=== PATIENT | female | born 1975 | race Caucasian/White ===

== ENCOUNTER 2020-07-11 14:26 | Outpatient (REF) | payer MEDICAID, SELFPAY | END 2020-07-11 14:27 | disposition home or self-care (01) | LOC: HO.LAB 14:26 | PROVIDERS: Visit Provider Internal Medicine | DX: Z20.828 Contact with and (suspected) exposure to other viral communicable diseases (principal) | CPT/HCPCS: C9803; U0003 ==

== ENCOUNTER 2021-02-22 20:34 | Emergency (ER) | payer MEDICAID, SELFPAY ==
[2021-02-22 20:49] VITALS: BP 138/84; PULSE 106; RESP 20; TEMP 37; O2SAT 100; BMI 30.2
--- NOTE | 2021-02-22 21:51 | ED.FEMALEGU ---
HPI - Female Genitourinary General Chief complaint: Urogenital-Female Stated complaint: asthma, blood in urine Time Seen by Provider: 02/22/21 21:28 Source: patient Mode of arrival: ambulatory Limitations: no limitations History of Present Illness HPI Narrative: patient complaining of difficulty in urination noticed some blood in the urine has dysuria frequency no fever no chills also complaining of asthma for last 1 week using inhaler only once or twice a day no fever no chills no nausea no vomiting Related Data Previous Rx's Medication Instructions Recorded prednisone 40 mg PO DAILY #10 tab 02/22/21 Allergies Allergy/AdvReac Type Severity Reaction Status Date / Time acetaminophen [From PERCOCET] Allergy Unknown RASH/ITCHIN Unverified 05/16/20 19:10 ESS oxycodone [From PERCOCET] Allergy Unknown RASH/ITCHIN Unverified 05/16/20 19:10 ESS shrimp [SHRIMP] Allergy Unknown SWELLING Unverified 05/16/20 19:10 Percocet Allergy Unknown Uncoded 10/11/19 00:00 Review of Systems Review of Systems: Yes all other systems are reviewed and are negative [facility] Past Medical History Medical History Asthma Social History Social History Advance Directives: No Advance Directives Information Provided: Yes Patient : No Physical Exam Vital Signs: Vital Signs: Last Vital Signs Temp 98.6 F 02/22/21 20:49 Pulse 106 H 02/22/21 20:49 Resp 20 02/22/21 20:49 BP 138/84 02/22/21 20:49 Pulse Ox 100 02/22/21 20:49 Body Mass Index 30.2 Appearance: Alert. Oriented X3. No acute distress. Eyes: PERRLA, No Nystagmus ENT: Pharynx normal. Oral Mucosa moist Neck: Normal inspection. Neck supple. CVS: Normal heart rate and rhythm. Pulses normal. Respiratory: No respiratory distress. Equal air entry bilateral, no wheezing/rales/rhonchi frequent cough, prolonged expiration Abdomen: Soft and nontender. Bowel sounds are present, no mass palpable, no CVA tenderness Skin: Skin warm and dry. Normal skin color. Normal skin turgor. Extremities: No lower extremity edema. No calf tenderness Neuro: Oriented X 3. No motor deficit. MDM - Female Genitourinary Lab Data Attestation: I reviewed the patient's lab results. Labs: Lab Results 02/22/21 Range/Units 21:48 Urine Color YELLOW Urine Appearance CLEAR Urine pH 7.0 (5.0-8.0) Ur Specific [place] 1.015 (1.005-1.025) Urine Protein NEG (NEG-TRACE) MG/DL Urine Glucose (UA) NEG (NEG) MG/DL Urine Ketones NEG (NEG) MG/DL Urine Blood 3+ H (NEG) Urine Nitrite NEG (NEG) Ur Leukocyte Esterase NEG (NEG) Urine RBC 15-29 H (0) /HPF Urine WBC 0 (0-4) /HPF Ur Squamous Epith Cells TRACE /LPF Urine Bacteria NONE /LPF Discharge Plan Discharge Clinical Impression: Hematuria, Asthma Patient Disposition: Home, Self-Care Instructions: Asthma (ED), Hematuria (ED) Additional Instructions: use inhaler every 4-6 hours as advised. drink plenty of fluids. Take prednisone as prescribed and follow-up with your PCP and urologist use el inhalador cada 4-6 horas adiel se recomienda. beber mucho l?quido. [place] prednisona seg?n lo prescrito y chika un seguimiento con gonsales PCP y ur?logo Prescriptions: New prednisone 20 mg tablet 40 mg PO DAILY Qty: 10 RF: 0 Referrals: Raul Mckeon MD [Physician] - 1 week Interventions: ED Discharge Assessment Last Done: 02/22/21 23:23 Discharge Date/Time: 02/22/21 23:25 Print Language: Syrian
[2021-02-22 22:01] LABS: Glucose Urine UA NEG (NEG); Leukocyte Esterase Urine NEG (NEG); Nitrite Urine NEG (NEG); Specific Gravity - Urine 1.015 (1.005-1.025); Urine Blood 3+ (NEG); Urine Ketones NEG (NEG); Urine Protein NEG (NEG-TRACE)
[2021-02-22 22:02] LABS: Appearance Urine CLEAR; Color Urine YELLOW
--- NOTE | 2021-02-22 22:13 | PC.NURSE ---
URINE SPECIMEN COLLECTED AND SENT FOR ANALYSIS. AWAITING RESULTS
[2021-02-22 22:21] LABS: Squamous Epithelial Cell Urine TRACE /LPF; WBC Urine 0 /HPF (0-4)
[2021-02-22] MEDS: Albuterol Sulfate 90 MCG 8 GM INHALER 2 PUFF INHALE (23:19)
[2021-02-22] MEDS: predniSONE 20 MG TABLET 40 MG PO (23:19)
== END 2021-02-22 23:25 | disposition home or self-care (01) ==
PROVIDERS: Emergency Provider Internal Medicine; PCP Internal Medicine
DX: R31.9 Hematuria, unspecified (principal); J45.909 Unspecified asthma, uncomplicated
CPT/HCPCS: 81001; 81003; 99283; 99284

== ENCOUNTER 2021-02-26 17:57 | Emergency (ER) | payer MEDICAID, SELFPAY ==
[2021-02-26 18:39] VITALS: BP 113/65; PULSE 98; RESP 16; TEMP 36.6; O2SAT 98; BMI 29.6
[2021-02-26 18:55] LABS: Glucose Urine UA >=1000 MG/DL (NEG); Leukocyte Esterase Urine NEG (NEG); Nitrite Urine POS (NEG); PH 5.5 (5.0-8.0); Specific Gravity - Urine >= 1.030 (1.005-1.025); UACC Culture Trigger YES; Urine Blood 3+ (NEG); Urine Ketones 5 MG/DL (NEG); Urine Protein 2+ MG/DL (NEG-TRACE)
[2021-02-26 18:58] LABS: Appearance Urine HAZY; Color Urine AMBER
[2021-02-26 19:09] LABS: Bacteria Urine 2+ /LPF; Mucus Urine TRACE /LPF; RBC Urine TNTC /HPF (0); Renal Epithelial Cells Urine TRACE /LPF; Squamous Epithelial Cell Urine TRACE /LPF; UACC CULT YES
[2021-02-26 22:49] VITALS: BP 120/71; PULSE 82; RESP 16; TEMP 37; O2SAT 99
[2021-02-26 23:02] LABS: MANUAL DIFF FLAG NO
[2021-02-26 23:03] LABS: Basophils Percent Auto 0.1 % (0-2); Hematocrit 41.4 % (37-47); Hemoglobin 13.2 g/dl (12.0-16.0); Imm Gran Abs Auto 0.04 X10*3/uL (0.00-0.03); Imm Gran Pct Auto 0.4 % (0.0-0.4); Lymphocytes Absolute Auto 1.6 X10*3/uL (1.2-4.9); Lymphocytes Percent Auto 16.9 % (20-40); Mean Corpuscular HGB Conc 31.9 g/dl (31.0-35.0); Mean Corpuscular Hemoglobin 29.3 pg (27.0-33.0); Mean Platelet Volume 9.9 fL (9.4-12.3); Monocytes Absolute Auto 0.7 X10*3/uL (0.1-1.2); Monocytes Percent Auto 7.5 % (2-11); Neutrophils Absolute Auto 7.2 X10*3/uL (2.0-8.3); Neutrophils Percent Auto 75.1 % (45-73); Platelet Count 282 X10*3/uL (160-400); Red Cell Distribution Width 11.9 % (11.0-16.0); White Blood Count 9.5 X10*3/uL (4.8-10.8)
--- NOTE | 2021-02-26 23:09 | ED_ITS ---
HPI - Female Genitourinary General Chief complaint: Urogenital-Female Stated complaint: Blood in urine Time Seen by Provider: 02/26/21 23:04 Source: patient Mode of arrival: ambulatory Limitations: no limitations History of Present Illness HPI Narrative: patient comes to the emergency room complaining of dysuria and hematuria. Patient states that 3 days ago she was started on Bactrim for UTI. Patient states that her symptoms have not resolved. The patient denies fever chills, patient complaining of mild bilateral back pain And mild bilateral flank tenderness. Related Data Previous Rx's Medication Instructions Recorded prednisone 40 mg PO DAILY #10 tab 02/22/21 Allergies Allergy/AdvReac Type Severity Reaction Status Date / Time acetaminophen [From PERCOCET] Allergy Unknown RASH/ITCHIN Unverified 05/16/20 19:10 ESS oxycodone [From PERCOCET] Allergy Unknown RASH/ITCHIN Unverified 05/16/20 19:10 ESS shrimp [SHRIMP] Allergy Unknown SWELLING Unverified 05/16/20 19:10 Percocet Allergy Unknown Uncoded 10/11/19 00:00 Review of Systems Review of Systems: Constitutional : No Weight loss, No Fever, No Chills, No Night Sweats, No Fatigue, No Malaise ENT/Mouth : No Hearing loss, No Ear Pain, No Nasal Congestion, No Sinus Pain, No Hoarseness, No sore throat, No Rhinorrhea, No Swallowing Difficulty Eyes: No Eye Pain, No Swelling, No Redness, No Foreign Body, No Discharge, No Vision Changes Cardiovascular : No Chest Pain, No SOB, No Dyspnea on Exertion, No Orthopnea, No Edema, No Palpitations Respiratory : No Cough, No Sputum, No Wheezing, No Smoke Exposure, No Dyspnea Gastrointestinal : No Nausea, No Vomiting, No Diarrhea, No Constipation, No abdominal Pain, No Hematochezia, No Melena Genitourinary : no irregular bleeding, complaining of dysuria and hematuria, mild bilateral flank pain, No Urinary Incontinence, No Urgency, No Flank Pain, No Urinary Flow Changes, No Hesitancy Musculoskeletal : No joint pain, No Myalgias, No Joint Swelling Skin : No Skin Lesions, No rash Neuro : No Weakness, No Numbness, No Paresthesias, No Loss of Consciousness, No Dizziness, No Headache Psych : No Anxiety/Panic, No Depression, No SI/HI/AH/VH, No Social Issues, Heme/Lymph: No Bruising, No Bleeding,No Lymphadenopathy Endocrine : No Polyuria, No Polydipsia, No Temperature Intolerance [facility] Past Medical History Medical History Asthma Social History Social History Advance Directives: No Advance Directives Information Provided: Yes Physical Exam Vital Signs: Vital Signs: Last Vital Signs Temp 98.6 F 02/26/21 22:49 Pulse 82 02/26/21 22:49 Resp 16 02/26/21 22:49 BP 120/71 02/26/21 22:49 Pulse Ox 99 02/26/21 22:49 Body Mass Index 29.6 Appearance: Alert. Oriented X3. No acute distress. well-appearing Eyes: Pupils equal, round and reactive to light. ENT: Pharynx normal. Neck: Normal inspection. Neck supple. No lymph nodes noted. No crepitus CVS: Normal heart rate and rhythm. Pulses normal. Normal S1 and S2 Respiratory: No respiratory distress. Breath sounds normal. No Wheezing. No rales Abdomen: Soft and nontender. No rigidity. No distention back: Mild pain in the thoracic and lumbar spine, and the bilateral flanks Skin: Skin warm and dry. Normal skin color. Normal skin turgor. Extremities: No lower extremity edema. No lower extremity edema. No Lacerations. No Rash Neuro: Oriented X 3. No motor deficit. No sensory deficit. Moving all extermities. No slurred speech. Course Course Course Narrative: patient was given the 1st dose of levofloxacin, urine culture and sensitivities have not returned. Sepsis is not suspected at this time. MDM - Female Genitourinary Lab Data Result diagrams: 02/26/21 22:57 02/26/21 22:57 Labs: Lab Results 02/26/21 02/26/21 02/26/21 Range/Units 18:48 22:57 22:57 WBC 9.5 (4.8-10.8) X10*3/uL RBC 4.50 (4.20-5.50) X10*6/uL Hgb 13.2 (12.0-16.0) g/dl Hct 41.4 (37-47) % MCV 92.0 (80-98) fL MCH 29.3 (27.0-33.0) pg MCHC 31.9 (31.0-35.0) g/dl RDW 11.9 (11.0-16.0) % Plt Count 282 (160-400) X10*3/uL MPV 9.9 (9.4-12.3) fL Immature Gran % (Auto) 0.4 (0.0-0.4) % Neut % (Auto) 75.1 H (45-73) % Lymph % (Auto) 16.9 L (20-40) % [place] % (Auto) 7.5 (2-11) % Eos % (Auto) 0.0 (0-4) % Baso % (Auto) 0.1 (0-2) % Lymph # (Auto) 1.6 (1.2-4.9) X10*3/uL [place] # (Auto) 0.7 (0.1-1.2) X10*3/uL Eos # (Auto) 0.0 (0.0-0.4) X10*3/uL Baso # (Auto) 0.0 (0.0-0.2) X10*3/uL Abs Immat Gran (auto) 0.04 H (0.00-0.03) X10*3/uL Absolute Neuts (auto) 7.2 (2.0-8.3) X10*3/uL Absolute Nucleated RBC 0.000 (0.0-0.012) X10*3/uL Nucleated RBC % (auto) 0.0 (0.0-0.2) /100WBC Sodium 139 (135-145) mmol/L Potassium 5.2 H (3.3-5.1) mmol/L Chloride 105 (96-108) mmol/L Carbon Dioxide 27 (22-29) mmol/L Anion Gap 12 (12-20) BUN 12 (9-16) mg/dL Creatinine 0.77 (0.5-1.4) mg/dL Estim Creat Clear Calc 88.4 Estimated GFR > 60 Random Glucose 133 H (60-115) mg/dL Calcium 9.6 (8.4-10.2) mg/dL Urine Color DEANNA Urine Appearance HAZY Urine pH 5.5 (5.0-8.0) Ur Specific [place] >= 1.030 H (1.005-1.025) Urine Protein 2+ H (NEG-TRACE) MG/DL Urine Glucose (UA) >=1000 H (NEG) MG/DL Urine Ketones 5 (NEG) MG/DL Urine Blood 3+ H (NEG) Urine Nitrite POS H (NEG) Ur Leukocyte Esterase NEG (NEG) Urine RBC TNTC H (0) /HPF Urine WBC 5-9 H (0-4) /HPF Ur Squamous Epith Cells TRACE /LPF Ur Renal Epithelial Cell TRACE /LPF Urine Bacteria 2+ /LPF Urine Mucus TRACE /LPF Discharge Plan Discharge Clinical Impression: Urinary tract infection Qualifiers: Hematuria presence: with hematuria Patient Disposition: Home, Self-Care Instructions: Urinary Tract Infection in Women (ED) Prescriptions: No Action prednisone 20 mg tablet 40 mg PO DAILY Qty: 10 RF: 0
[2021-02-26 23:24] LABS: Anion Gap 12 (12-20); Blood Urea Nitrogen 12 mg/dL (9-16); Calcium 9.6 mg/dL (8.4-10.2); Carbon Dioxide 27 mmol/L (22-29); Chloride 105 mmol/L (96-108); Creatinine Clr Calc Pharmacy 88.4; Estimated Glomerular Filt Rate > 60; Glucose Random 133 mg/dL (60-115); Potassium 5.2 mmol/L (3.3-5.1); Sodium 139 mmol/L (135-145)
[2021-02-27] MEDS: levoFLOXacin 500 MG TABLET PO (00:23)
== END 2021-02-27 00:40 | disposition home or self-care (01) ==
PROVIDERS: Emergency Provider Emergency Medicine
DX: N39.0 Urinary tract infection, site not specified (principal)
CPT/HCPCS: 36415; 80048; 81001; 85025; 87086; 99283

== ENCOUNTER 2021-04-09 21:53 | Emergency (ER) | payer MEDICAID, SELFPAY ==
--- NOTE | ~2021-04-09 | XR_ITS ---
EXAMINATION: XR FOOT, RIGHT XR ANKLE, RIGHT CLINICAL INFORMATION: Fall with right foot/toe pain. Ankle pain. COMPARISON: None TECHNIQUE: 3 views of the right foot. 2 additional views of the right ankle. FINDINGS: Right foot: There is no fracture or dislocation. Alignment is maintained. Joint spaces are maintained. The soft tissues appear unremarkable. Right ankle: No fracture or dislocation. The ankle mortise is congruent. No ankle joint effusion. The soft tissues are mildly swollen laterally. XR/XR ankle RT 2V IMPRESSION: Mild lateral swelling at the ankle. No acute osseous abnormality.
--- NOTE | ~2021-04-09 | XR_ITS ---
EXAMINATION: XR FOOT, RIGHT XR ANKLE, RIGHT CLINICAL INFORMATION: Fall with right foot/toe pain. Ankle pain. COMPARISON: None TECHNIQUE: 3 views of the right foot. 2 additional views of the right ankle. FINDINGS: Right foot: There is no fracture or dislocation. Alignment is maintained. Joint spaces are maintained. The soft tissues appear unremarkable. Right ankle: No fracture or dislocation. The ankle mortise is congruent. No ankle joint effusion. The soft tissues are mildly swollen laterally. XR/XR foot RT 2V IMPRESSION: Mild lateral swelling at the ankle. No acute osseous abnormality.
[2021-04-09 22:17] VITALS: BP 114/75; PULSE 88; RESP 18; TEMP 36.4; O2SAT 96; BMI 31.1
--- NOTE | 2021-04-09 23:12 | ED.FALL ---
HPI - Fall General Chief Complaint: Fall Stated Complaint: fall Time Seen by Provider: 04/09/21 22:48 Source: patient Mode of arrival: ambulatory Limitations: no limitations History of Present Illness HPI Narrative: Patient presents to ED for right foot pain. Patient states she hit her foot on the pole in the pool. Patient denies hitting head or loss of consciousness. Related Data Previous Rx's Medication Instructions Recorded prednisone 20 mg tablet 40 mg PO DAILY #10 tab 02/22/21 levofloxacin 500 mg tablet 500 mg PO DAILY #9 tab 02/27/21 naproxen 500 mg tablet 500 mg PO BID PRN #20 tab 04/09/21 Allergies Allergy/AdvReac Type Severity Reaction Status Date / Time acetaminophen [From PERCOCET] Allergy Unknown RASH/ITCHIN Verified 04/09/21 22:21 ESS oxycodone [From PERCOCET] Allergy Unknown RASH/ITCHIN Verified 04/09/21 22:21 ESS shrimp [SHRIMP] Allergy Unknown SWELLING Verified 04/09/21 22:21 Percocet Allergy Unknown Rash Uncoded 04/09/21 22:21 Review of Systems Review of Systems: Yes all other systems are reviewed and are negative Constitutional: Constitutional: Reports as per HPI and Reports no additional constitutional complaints Eyes: Eyes: Reports as per HPI and Reports no additional eye complaints ENT: Reports system reviewed and no additional complaints, except as documented and Reports as per HPI Cardiovascular: Cardiovascular: Reports as per HPI and Reports no additional cardiovascular complaints Respiratory: Respiratory: Reports as per HPI and Reports no additional respiratory complaints Gastrointestinal: Gastrointestinal: Reports as per HPI and Reports no additional gastrointestinal complaints Genitourinary: Genitourinary: Reports no additional female genitourinary complaints and Reports as per HPI Musculoskeletal: Musculoskeletal: Reports no additional musculoskeletal complaints and Reports as per HPI Comments: Right foot pain Neurologic: Reports system reviewed and no additional complaints, except as documented and Reports as per HPI Psychiatric: Psychiatric: Reports no additional psychiatric complaints and Reports as per HPI PMF Past Medical History Medical History Asthma Social History Social History Advance Directives: No Advance Directives Information Provided: No Patient : No Physical Exam Vital Signs: Vital Signs: Last Vital Signs Temp 97.6 F 04/09/21 22:17 Pulse 88 04/09/21 22:17 Resp 18 04/09/21 22:17 BP 114/75 04/09/21 22:17 Pulse Ox 96 04/09/21 22:17 Body Mass Index 31.1 Const: General: cooperative, healthy appearing, comfortable, no acute distress, well developed, alert, awake and Physically active Orientation/consciousness: patient oriented x3 HENMT: Head: Yes normal to inspection, Yes No palpable skull fracture present, Yes normocephalic and Yes atraumatic Eyes: General: appearance normal, both eyes and all related structures Neck: Neck: Yes normal visual inspection, Yes full ROM, Yes no lymphadenopathy, Yes no meningeal signs, Yes trachea midline, Yes supple and No tender Chest: Chest palpation & inspection: normal inspection of the chest and normal palpation of entire chest wall Resp: Effort & Inspection: normal respiratory effort and able to speak in complete sentences Auscultation: clear to auscultation bilaterally Cardio: Jugular venous distension: no JVD Heart sounds: S1 normal heart sound present and S2 normal heart sound present GI: Inspection: Yes normal to inspection and No abdominal wall ecchymosis Palpation (GI): Soft to palpation, not firm, nontender, no guarding and not rigid : General: No CVA tenderness and Yes no CVA tenderness Back/Spine/Pelvis: Back: no CVA tenderness, No CVA tenderness and No back tenderness Skin: General skin exam: no rashes or lesions noted and elasticity normal Neuro: General: patient oriented x3, gait normal, no meningeal signs and CN's II-XI intact bilaterally Cranial nerves: Yes CN's II-XII intact bilaterally Extrem: General: Yes normal to inspection and Yes full ROM Ankle/foot/toe images: 1. Positive for ecchymosis/tenderness on palpation. Negative for obvious deformity. Motor/neuro/vascular exam intact. Negative for erythema Course Course Course Narrative: Patient sent for lower extremity xray. Reevaluation(s) Reevaluation #1: X-rays negative for fracture. Contusion Time: 23:20 MDM - Fall MDM Narrative Medical decision making narrative: Contusion Discharge Plan Discharge Clinical Impression: Contusion Patient Disposition: Home, Self-Care Instructions: Contusion in Adults (ED) Additional Instructions: X-rays came back negative for fracture. Return to the ED immediately for worsening swelling, pain, redness, leg swelling, calf pain, bluish black discoloration of toes , coldness , hotness, fever, chills, chest pain, shortness of breath, or any other concerning symptoms. Please follow up with PCP. Prescriptions: New naproxen 500 mg tablet 500 mg PO BID PRN (Reason: pain) Qty: 20 RF: 0 No Action levofloxacin 500 mg tablet 500 mg PO DAILY Qty: 9 RF: 0 prednisone 20 mg tablet 40 mg PO DAILY Qty: 10 RF: 0 Stand Alone Forms: Work/School Release Print Language: Upper Sorbian
[2021-04-09] MEDS: Ibuprofen 800 MG TABLET PO (23:32)
== END 2021-04-09 23:50 | disposition home or self-care (01) ==
PROVIDERS: Emergency Provider Emergency Medicine
DX: S90.31XA Contusion of right foot, initial encounter (principal); W22.09XA Striking against other stationary object, initial encounter; Y93.11 Activity, swimming; Y92.34 Swimming pool (public) as the place of occurrence of the external cause; Y99.9 Unspecified external cause status
CPT/HCPCS: 73600; 73620; 99283; 99284

== ENCOUNTER 2021-04-23 14:28 | Outpatient (REF) | payer MEDICAID, SELFPAY | END 2021-04-23 14:29 | disposition home or self-care (01) | LOC: HO.LNP 14:28 | DX: N30.91 Cystitis, unspecified with hematuria (principal); R31.29 Other microscopic hematuria | CPT/HCPCS: 87086; 99202 ==

== ENCOUNTER 2021-04-29 13:50 | Outpatient (REF) | payer MEDICAID, SELFPAY ==
--- NOTE | ~2021-04-29 | US_ITS ---
EXAMINATION: US RETROPERITONEAL LIMITED (RENAL ONLY) CLINICAL INFORMATION: Hematuria, unspecified. COMPARISON: Renal ultrasound 03/27/2021. Ultrasound abdomen 08/18/2016. TECHNIQUE: Real-time imaging of the kidneys. FINDINGS: RIGHT KIDNEY: 11.4 x 4.8 x 5.7 cm (SAG x AP x TRV). The kidney is normal in size, contour, and echogenicity. Renal cortical thickness is normal. No calculi or focal parenchymal lesions. No hydronephrosis. LEFT KIDNEY: 11.8 x 5.3 x 6.3 cm (SAG x AP x TRV). The kidney is normal in size, contour, and echogenicity. Renal cortical thickness is normal. There are 2 small hyperechoic densities in the midpole questionable for small stones measuring 3 mm. No focal parenchymal lesions or hydronephrosis. The liver is echogenic. US/US renal BI IMPRESSION: Question small left renal stones.
== END 2021-04-29 13:51 | disposition home or self-care (01) ==
LOC: HO.HMGCX 13:50
PROVIDERS: PCP Internal Medicine
DX: R31.9 Hematuria, unspecified (principal)
CPT/HCPCS: 76775

== ENCOUNTER → 2021-05-28 08:32 | Outpatient (BNVA) | payer MEDICAID, SELFPAY | PROVIDERS: PCP Internal Medicine | DX: N20.2 Calculus of kidney with calculus of ureter (principal); R31.9 Hematuria, unspecified | CPT/HCPCS: 99212 ==

== ENCOUNTER 2021-07-11 10:40 | Outpatient (REF) | payer MEDICAID, SELFPAY ==
[2021-07-12 12:04] LABS: H Pylori Breath Test Negative (Negative)
== END 2021-07-11 10:41 | disposition home or self-care (01) ==
LOC: HO.LNP 10:40
PROVIDERS: PCP Internal Medicine; Referring Provider Internal Medicine; Visit Provider Internal Medicine Gastroenterology
DX: K29.70 Gastritis, unspecified, without bleeding (principal)
CPT/HCPCS: 83013; 99212

== ENCOUNTER 2021-09-04 10:24 | Outpatient (REF) | payer MEDICAID, SELFPAY ==
[2021-09-04 12:33] LABS: Binax Internal Control QC Valid; Binax Now Covid-19 Ag Positive (Negative)
== END 2021-09-04 10:25 | disposition home or self-care (01) ==
LOC: HO.HMGCLDS 10:24
PROVIDERS: Visit Provider Internal Medicine
DX: Z20.822 Contact with and (suspected) exposure to COVID-19 (principal)
CPT/HCPCS: 36415; C9803

== ENCOUNTER → 2021-11-07 10:34 | Outpatient (BNVA) | payer MEDICAID, SELFPAY | PROVIDERS: PCP Internal Medicine; Referring Provider Internal Medicine; Visit Provider Internal Medicine Gastroenterology ==

== ENCOUNTER 2021-12-10 08:21 | Emergency (ER) | payer MEDICAID, SELFPAY ==
--- NOTE | ~2021-12-10 | US_ITS ---
EXAMINATION: US PELVIS CLINICAL INFORMATION: Ovarian cyst with pain. Rule out torsion. COMPARISON: Previous CT scan of the abdomen and pelvis from earlier the same day TECHNIQUE: Ultrasound of the pelvis is performed using both transabdominal and transvaginal transducers along with Doppler. Transvaginal imaging is performed due to inadequate visualization transabdominally. Grayscale color and Doppler imaging of the ovarian vessels including waveform spectral analysis. FINDINGS: The uterus has been removed. The right ovary is normal-appearing and measures 3 x 2.3 x 2.9 cm. Flow is documented to the right ovary. The left ovary is enlarged and measures 6 x 4.1 x 4.9 cm. There is a 3.9 x 3.7 x 4.1 cm simple cyst and a 2.4 x 1.2 x 1.2 cm simple cyst in the left ovary. Normal flow is documented to the left ovary. There is no evidence of torsion. There is no fluid in the pelvis. US/US pelvic complete IMPRESSION: Enlarged ovaries and 2 left ovarian cysts. Normal right ovary. No evidence of torsion.
--- NOTE | ~2021-12-10 | US_ITS ---
EXAMINATION: US PELVIS CLINICAL INFORMATION: Ovarian cyst with pain. Rule out torsion. COMPARISON: Previous CT scan of the abdomen and pelvis from earlier the same day TECHNIQUE: Ultrasound of the pelvis is performed using both transabdominal and transvaginal transducers along with Doppler. Transvaginal imaging is performed due to inadequate visualization transabdominally. Grayscale color and Doppler imaging of the ovarian vessels including waveform spectral analysis. FINDINGS: The uterus has been removed. The right ovary is normal-appearing and measures 3 x 2.3 x 2.9 cm. Flow is documented to the right ovary. The left ovary is enlarged and measures 6 x 4.1 x 4.9 cm. There is a 3.9 x 3.7 x 4.1 cm simple cyst and a 2.4 x 1.2 x 1.2 cm simple cyst in the left ovary. Normal flow is documented to the left ovary. There is no evidence of torsion. There is no fluid in the pelvis. US/US pelvic ovarian doppler IMPRESSION: Enlarged ovaries and 2 left ovarian cysts. Normal right ovary. No evidence of torsion.
--- NOTE | ~2021-12-10 | CT_ITS ---
EXAMINATION: CT ABDOMEN AND PELVIS WITHOUT CONTRAST CLINICAL INFORMATION: Bilateral flank pain. COMPARISON: None TECHNIQUE: Multidetector volumetric imaging was performed from the superior aspect of the liver through the pubic symphysis. Sagittal and coronal reformatted images were obtained on the technologist's workstation. This CT examination was performed using dose optimization techniques as appropriate, variously including the following: *Automated exposure control *Adjustment of mA and/or kV according to patient size (this includes techniques or standardized protocols for targeted exams where dose is matched to indication/reason for exam; i.e. extremities or head) *Use of iterative reconstruction technique DLP: 649 mGy-cm FINDINGS: LUNG BASES: The visualized lung bases are unremarkable. LIVER, GALLBLADDER, AND BILIARY TREE: The liver is normal in size, shape, and hypo-attenuation. No focal hepatic lesion or biliary ductal dilatation is present. The gallbladder is unremarkable with no evidence of radiopaque gallstones, gallbladder wall thickening, or obvious pericholecystic inflammatory changes. PANCREAS: Unremarkable. SPLEEN: Unremarkable. ADRENAL GLANDS: Unremarkable. KIDNEYS AND URETERS: The kidneys are normal in size, shape, and attenuation. No hydronephrosis, hydroureter, or calculi seen. No perinephric stranding. BLADDER: There is indentation of left bladder wall from ovarian cyst. The bladder is incompletely distended. GASTROINTESTINAL TRACT: Scattered stool and gas is seen throughout colon without distention. The small bowel loops are normal caliber. The stomach is nondistended. Appendix is normal caliber. No inflammatory process seen in the abdomen. ABDOMINAL WALL: No significant hernia is appreciated. LYMPH NODES: Normal. VASCULAR: Unremarkable. PELVIC VISCERA: There is a 4.1 x 3.6 cm x 5.2 cyst adjacent to the left ovary likely paraovarian or an exophytic left ovarian cyst. No solid mass seen. The uterus appears to be surgically there is minimal free fluid in the cul-de-sac. Removed OSSEOUS STRUCTURES: No lytic or sclerotic process seen. CT/CT abdomen pelvis wo con IMPRESSION: No acute intra-abdominal process seen. Left paraovarian cyst or an exophytic cyst. Small amount free fluid in the pelvis. The uterus is likely surgically removed. Mild constipation. Mild hepatic steatosis without focal lesion. Fleischner guidelines were followed.
[2021-12-10 08:30] VITALS: BP 119/79; PULSE 98; RESP 16; TEMP 35.9; O2SAT 98; BMI 32.0
[2021-12-10 08:58] LABS: MANUAL DIFF FLAG NO
[2021-12-10 09:00] LABS: Appearance Urine CLEAR; Color Urine YELLOW; Glucose Urine UA NEG (NEG); Leukocyte Esterase Urine NEG (NEG); Nitrite Urine NEG (NEG); PH 5.5 (5.0-8.0); Specific Gravity - Urine >= 1.030 (1.005-1.025); Urine Blood NEG (NEG); Urine Ketones NEG (NEG); Urine Protein NEG (NEG-TRACE)
[2021-12-10 09:00] LABS: Basophils Absolute Auto 0.1 X10*3/uL (0.0-0.2); Basophils Percent Auto 0.9 % (0-2); Eosinophils Absolute Auto 0.2 X10*3/uL (0.0-0.4); Eosinophils Percent Auto 2.6 % (0-4); Hematocrit 39.8 % (37.0-47.0); Hemoglobin 12.1 g/dl (12.0-16.0); Lymphocytes Absolute Auto 1.9 X10*3/uL (1.2-4.9); Lymphocytes Percent Auto 33.1 % (20-40); Mean Corpuscular HGB Conc 30.4 g/dl (31.0-35.0); Mean Corpuscular Hemoglobin 26.5 pg (27.0-33.0); Mean Corpuscular Volume 87.3 fL (80.0-98.0); Mean Platelet Volume 9.9 fL (9.4-12.3); Monocytes Absolute Auto 0.5 X10*3/uL (0.1-1.2); Monocytes Percent Auto 8.8 % (2-11); Neutrophils Absolute Auto 3.1 x10*3/uL (2.0-8.3); Neutrophils Percent Auto 54.6 % (45-73); Platelet Count 276 X10*3/uL (160-400); Red Blood Count 4.56 X10*6/uL (4.20-5.50); Red Cell Distribution Width 12.1 % (11.0-16.0); White Blood Count 5.7 X10*3/uL (4.8-10.8)
[2021-12-10 09:14] LABS: Alanine Aminotransferase 65 U/L (0-31); Albumin Level 3.9 g/dL (3.5-5.0); Alkaline Phosphatase 58 U/L (39-117); Anion Gap 10 (12-20); Aspartate Amino Transferase 47 U/L (5-31); Bilirubin Total 0.4 mg/dL (0.0-1.0); Blood Urea Nitrogen 10 mg/dL (9-16); Calcium 9.2 mg/dL (8.4-10.2); Carbon Dioxide 26 mmol/L (22-29); Chloride 107 mmol/L (96-108); Creatinine Clr Calc Pharmacy 102.5; Estimated Glomerular Filt Rate > 60; Glucose Random 106 mg/dL (60-115); Potassium 4.6 mmol/L (3.3-5.1); Sodium 138 mmol/L (135-145); Total Protein 6.7 g/dL (6.5-8.0)
--- NOTE | 2021-12-10 09:49 | ED_ITS ---
HPI - General Adult General Chief complaint: General Medical Stated complaint: Lower abd pain/back pain Time Seen by Provider: 12/10/21 09:49 Source: patient Mode of arrival: ambulatory Limitations: no limitations History of Present Illness HPI narrative: 45 y/o female with history of kidney stones, hx hysterectomy, presenting to the ER with bilateral flank ( kidney ) pain that radiates to her lower abdomen to he r ovaries that started yesterday. She also reports the left is worse than the right. She denies any urinary symptoms, N/V/D. Reports constipation and straining to have a BM. She any history of back pain or any injury. Patient also reports left-sided facial pain and headache for the last 1 week. She denies any dental pain or trauma. No ear pain or hearing loss. The headache is dull and mild, comes and goes. No dizziness, weakness, tingling. MD complaint: left flank to LLQ Pain Onset (ago): day(s) (1) Location: back, abdomen and pelvis Radiation: abdomen Severity: moderate Severity scale (1-10): 7 Quality: stabbing and aching Pain Consistency: constant Relieving factors: none Exacerbating factors: none Associated symptoms: denies other symptoms Treatments prior to arrival: NSAID Related Data Home Medications Medication Instructions Recorded Confirmed ibuprofen 800 mg tablet 800 mg PO TID PRN 05/28/21 Previous Rx's Medication Instructions Recorded prednisone 20 mg tablet 40 mg PO DAILY #10 tab 02/22/21 levofloxacin 500 mg tablet 500 mg PO DAILY #9 tab 02/27/21 naproxen 500 mg tablet 500 mg PO BID PRN #20 tab 04/09/21 ciprofloxacin HCl 500 mg tablet 500 mg PO BID 5 Days #10 tab 04/23/21 (Cipro) pyridoxine (vitamin B6) 100 mg 100 mg PO DAILY 90 Days #90 tab 05/28/21 tablet famotidine 40 mg tablet (Pepcid) 40 mg PO BEDTIME #60 tab 11/07/21 ibuprofen 800 mg tablet 800 mg PO Q8H PRN #14 tab 12/10/21 tramadol 50 mg tablet 50 mg PO Q8H PRN #6 tab 12/10/21 Allergies Allergy/AdvReac Type Severity Reaction Status Date / Time shellfish derived Allergy Mild unknown Verified 07/11/21 10:46 acetaminophen [From PERCOCET] Allergy Unknown RASH/ITCHIN Verified 07/11/21 10:46 ESS oxycodone [From PERCOCET] Allergy Unknown RASH/ITCHIN Verified 07/11/21 10:46 ESS shrimp [SHRIMP] Allergy Unknown SWELLING Verified 07/11/21 10:46 Percocet Allergy Unknown Rash Uncoded 07/11/21 10:46 Review of Systems Review of Systems: Constitutional: No Fever, No Chills ENT/Mouth: No sore throat, No Rhinorrhea, No Swallowing Difficulty, No ear pain, No hearing loss Eyes: No Eye Pain, No Swelling, No Redness, No vision changes Cardiovascular: No Chest Pain, No SOB, No Orthopnea, No Edema Respiratory: No Cough, No Sputum, No Wheezing, No dyspnea Gastrointestinal: No Nausea, No Vomiting, No Diarrhea, + abdominal Pain, No Hematochezia, No Melena, +constipation Genitourinary: No Dysuria, No Urinary Frequency, No Hematuria Musculoskeletal: No joint pain, No Myalgias Skin: No Skin Lesions, No rash Neuro: No Weakness, No Numbness, No Dizziness, + Headache Psych: No Anxiety/Panic, No Depression Heme/Lymph: No Bruising, No Lymphadenopathy Endocrine: No Polyuria, No Polydipsia [facility] Past Medical History Medical History (Updated 12/10/21 @ 12:58 by JERRI Valencia) Asthma Gastric reflux Gastritis Heartburn Hematuria Renal and ureteric calculus Surgical History (Updated 07/11/21 @ 10:51 by NICOLA Martin) History of esophagogastroduodenoscopy (EGD) History of surgery Social History Social History Patient Tobacco Use Status: Never used Tobacco Advance Directives: No Patient : No Physical Exam ED Vital Signs: Vital Signs - 24 hr 12/10/21 08:30 12/10/21 11:30 Temperature 96.6 F L 97.9 F Pulse Rate 98 73 Respiratory Rate 16 16 Blood Pressure 119/79 121/73 Pulse Oximetry 98 99 BMI result Body Mass Index 32.0 Appearance: Alert. Oriented X3. No acute distress. Eyes: Pupils equal, round and reactive to light. ENT: Pharynx normal. Neck: Normal inspection. Neck supple. CVS: Normal heart rate and rhythm. Pulses normal. Respiratory: No respiratory distress. Breath sounds normal. Abdomen: Soft, LLQ tenderness with mild guarding, no rebound, +BS x4. no cva tenderness Skin: Skin warm and dry. Normal skin color. Normal skin turgor. No rashes. Extremities: No lower extremity edema. Neuro: Oriented X 3. No motor deficit. No sensory deficit. Course Course Course Narrative: 45-year-old female with a history kidney stones presents to the ER with left- sided flank pain that radiates down to her left lower quadrant. She has tenderness to left lower quadrant with mild guarding, no rebound. She reports nausea and 8/10 pain at this time. Will get basic lab workup, urinalysis and CT scan for further evaluation. Reevaluation(s) Reevaluation #1: Urinalysis is normal, blood work is negative. CT scan is showing enlarged cyst around the left ovary. Will get pelvic ultrasound to assess for possible torsion. She reports her pain is significantly improved after a dose of morphine and Zofran. Reevaluation #2: Ultrasound showing left-sided ovarian cyst without any torsion. She has no OBGYN. Will refer to Ob here. 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 Procedures EJ/Peripheral Line Arm L: Time Out Performed: No Skin Cleansed in Sterile Fashion: Yes Size (gauge): 20 IV Secured and Dressing Applied: Yes Patient Tolerated Procedure: well and no complications Medical Decision Making Lab Data Result diagrams: 12/10/21 08:54 12/10/21 08:54 Labs: Lab Results 12/10/21 12/10/21 12/10/21 Range/Units 08:49 08:54 08:54 WBC 5.7 (4.8-10.8) X10*3/uL RBC 4.56 (4.20-5.50) X10*6/uL Hgb 12.1 (12.0-16.0) g/dl Hct 39.8 (37.0-47.0) % MCV 87.3 (80.0-98.0) fL MCH 26.5 L (27.0-33.0) pg MCHC 30.4 L (31.0-35.0) g/dl RDW 12.1 (11.0-16.0) % Plt Count 276 (160-400) X10*3/uL MPV 9.9 (9.4-12.3) fL Immature Gran % (Auto) 0.0 (0.0-0.4) % Neut % (Auto) 54.6 (45-73) % Lymph % (Auto) 33.1 (20-40) % [place] % (Auto) 8.8 (2-11) % Eos % (Auto) 2.6 (0-4) % Baso % (Auto) 0.9 (0-2) % Lymph # (Auto) 1.9 (1.2-4.9) X10*3/uL [place] # (Auto) 0.5 (0.1-1.2) X10*3/uL Eos # (Auto) 0.2 (0.0-0.4) X10*3/uL Baso # (Auto) 0.1 (0.0-0.2) X10*3/uL Abs Immat Gran (auto) 0.00 (0.00-0.03) X10*3/uL Absolute Neuts (auto) 3.1 (2.0-8.3) x10*3/uL Absolute Nucleated RBC 0.000 (0.0-0.012) X10*3/uL Nucleated RBC % (auto) 0.0 (0.0-0.2) /100WBC Sodium 138 (135-145) mmol/L Potassium 4.6 (3.3-5.1) mmol/L Chloride 107 (96-108) mmol/L Carbon Dioxide 26 (22-29) mmol/L Anion Gap 10 L (12-20) BUN 10 (9-16) mg/dL Creatinine 0.69 (0.5-1.4) mg/dL Estim Creat Clear Calc 102.5 Estimated GFR > 60 Random Glucose 106 (60-115) mg/dL Calcium 9.2 (8.4-10.2) mg/dL Total Bilirubin 0.4 (0.0-1.0) mg/dL AST 47 H (5-31) U/L ALT 65 H (0-31) U/L Alkaline Phosphatase 58 (39-117) U/L Total Protein 6.7 (6.5-8.0) g/dL Albumin 3.9 (3.5-5.0) g/dL Urine Color YELLOW Urine Appearance CLEAR Urine pH 5.5 (5.0-8.0) Ur Specific [place] >= 1.030 H (1.005-1.025) Urine Protein NEG (NEG-TRACE) MG/DL Urine Glucose (UA) NEG (NEG) MG/DL Urine Ketones NEG (NEG) MG/DL Urine Blood NEG (NEG) Urine Nitrite NEG (NEG) Ur Leukocyte Esterase NEG (NEG) Critical Care Time Critical Care Time Critical Care Time: No Discharge Plan Discharge Clinical Impression: Ovarian cyst Patient Disposition: Home, Self-Care Instructions: Ovarian Cyst (ED), Ovarian Cyst Removal (DC) Additional Instructions: Your lab workup and urine tests today were normal. Your CT scan and ultrasound showed 2 ovarian cysts on the left side. Recommend follow up with INTERNAL COMBUSTION ENGINE INSPECTOR - name and number below Take the prescribed ibuprofen for moderate pain. Also recommend Tylenol 975 mg every 6 hours Take the prescribed Tramadol for severe pain - do not drive after taking this medication. If you develop new or worsening symptoms call 911 or come back to the ER for further evaluation. Prescriptions: New ibuprofen 800 mg tablet 800 mg PO Q8H PRN (Reason: pain) Qty: 14 0RF tramadol 50 mg tablet 50 mg PO Q8H PRN (Reason: severe pain (scale score 7-10)) Qty: 6 0RF No Action levofloxacin 500 mg tablet 500 mg PO DAILY Qty: 9 0RF naproxen 500 mg tablet 500 mg PO BID PRN (Reason: pain) Qty: 20 0RF prednisone 20 mg tablet 40 mg PO DAILY Qty: 10 0RF ciprofloxacin HCl [Cipro] 500 mg tablet 500 mg PO BID 5 Days Qty: 10 0RF ibuprofen 800 mg tablet 800 mg PO TID PRN (Reason: pain) 0RF pyridoxine (vitamin B6) 100 mg tablet 100 mg PO DAILY 90 Days Qty: 90 1RF famotidine [Pepcid] 40 mg tablet 40 mg PO BEDTIME Qty: 60 2RF Referrals: Jamison Ortiz MD [Physician] - 1 week (ovarian cysts)
[2021-12-10] MEDS: Morphine Sulfate 4 MG/ML CARTRIDGE IVPUSH (10:32)
[2021-12-10] MEDS: ondansetron HCL 4 MG/2 ML VIAL IVPUSH (10:33)
[2021-12-10 11:30] VITALS: BP 121/73; PULSE 73; RESP 16; TEMP 36.6; O2SAT 99
== END 2021-12-10 13:16 | disposition home or self-care (01) ==
PROVIDERS: Emergency Provider Emergency Medicine; PCP Internal Medicine
DX: N83.202 Unspecified ovarian cyst, left side (principal); R10.32 Left lower quadrant pain; R10.2 Pelvic and perineal pain; Z79.899 Other long term (current) drug therapy
CPT/HCPCS: 36415; 36556; 74176; 76856; 80053; 81003; 85025; 93975; 96374; 96375; 99283; 99284; J2270; J2405

== ENCOUNTER 2022-04-17 16:21 | Emergency (ER) | payer MEDICAID, SELFPAY ==
--- NOTE | 2022-04-17 | ECG_ITS ---
Test Reason : CHEST PAIN Blood Pressure : / mmHG Vent. Rate : 085 BPM Atrial Rate : 085 BPM P-R Int : 138 ms QRS Dur : 072 ms QT Int : 358 ms P-R-T Axes : 017 026 030 degrees QTc Int : 426 ms Normal sinus rhythm Normal ECG No previous ECGs available Referred By: Generic ED Physician Electronically Signed By:KATIA AREVALO
--- NOTE | ~2022-04-17 | CT_ITS ---
EXAMINATION: CT HEAD WITHOUT CONTRAST CLINICAL INFORMATION: Left-sided facial weakness COMPARISON: None TECHNIQUE: Contiguous axial imaging was performed from the skull base to vertex without intravenous administration of contrast. This CT examination was performed using dose optimization techniques as appropriate, variously including the following: *Automated exposure control *Adjustment of mA and/or kV according to patient size (this includes techniques or standardized protocols for targeted exams where dose is matched to indication/reason for exam; i.e. extremities or head) *Use of iterative reconstruction technique DLP: 686 mGy-cm FINDINGS: There is no evidence of acute intracranial hemorrhage or territorial infarction. No abnormal mass effect or midline shift is seen. Lang to white matter differentiation is well preserved. No extra-axial fluid collections are identified. The ventricles are normal in size. There is no abnormal attenuation within the brain parenchyma. The osseous structures and soft tissues are normal. The mastoid air cells and visualized portions of the paranasal sinuses are well aerated. CT/CT head/brain wo con IMPRESSION: No CT evidence of acute intracranial hemorrhage or edematous large vessel territorial infarction.. Further evaluation with MRI as clinically warranted.
[2022-04-17 16:33] VITALS: BP 126/77; PULSE 91; RESP 16; TEMP 36.5; O2SAT 98; BMI 32.1
--- NOTE | 2022-04-17 16:57 | ED.NEUROSD ---
HPI - Neuro Symptoms/Deficit General Chief Complaint: Chest Pain Stated Complaint: l facial numbness chest pain Time Seen by Provider: 04/17/22 16:38 Source: patient Mode of arrival: ambulatory Limitations: no limitations History of Present Illness HPI Narrative: 46 yo female hx of asthma reports she noted a headache on L side yesterday then woke up today with numbness feeling at 7am to left side of face then she noted a hard time swallowing and throughout the day the left side of her face won't move. She cannot close her eyes completely and her forehead won't move either. This has never happened before. No tick bites, travel. No recent denta work, no neck pain no chiropractic work/whiplash. No cold sores or URI/vaccines recently Onset (ago): day(s) (yesterday) Location: left face History of same: No Severity: mild Quality: weak and numb Relieving factors: none Exacerbating factors: none Context: gradual onset On Anticoagulants: No Associated symptoms: chest pain (felt chest pains today anterior chest as well ) Treatments Prior to Arrival: none Related Data Home Medications Medication Instructions Recorded Confirmed ibuprofen 800 mg tablet 800 mg PO TID PRN pain 05/28/21 Previous Rx's Medication Instructions Recorded prednisone 20 mg tablet 40 mg PO DAILY #10 tabs 02/22/21 levofloxacin 500 mg tablet 500 mg PO DAILY #9 tabs 02/27/21 naproxen 500 mg tablet 500 mg PO BID PRN pain #20 tabs 04/09/21 ciprofloxacin HCl 500 mg tablet 500 mg PO BID zuti 5 days #10 tabs 04/23/21 (Cipro) pyridoxine (vitamin B6) 100 mg 100 mg PO DAILY 90 days #90 tabs 05/28/21 tablet famotidine 40 mg tablet (Pepcid) 40 mg PO BEDTIME #60 tabs 11/07/21 ibuprofen 800 mg tablet 800 mg PO Q8H PRN pain #14 tabs 12/10/21 tramadol 50 mg tablet 50 mg PO Q8H PRN severe pain 12/10/21 (scale score 7-10) #6 tabs prednisone 20 mg tablet 40 mg PO DAILY 5 days #10 tabs 04/17/22 valacyclovir 1 gram tablet 1,000 mg PO TID 7 days #21 tabs 04/17/22 (Valtrex) Allergies Allergy/AdvReac Type Severity Reaction Status Date / Time shellfish derived Allergy Mild unknown Verified 07/11/21 10:46 acetaminophen [From PERCOCET] Allergy Unknown RASH/ITCHIN Verified 07/11/21 10:46 ESS oxycodone [From PERCOCET] Allergy Unknown RASH/ITCHIN Verified 07/11/21 10:46 ESS shrimp [SHRIMP] Allergy Unknown SWELLING Verified 07/11/21 10:46 Percocet Allergy Unknown Rash Uncoded 07/11/21 10:46 Review of Systems Review of Systems: Constitutional : No Fever, No Chills, No Fatigue ENT/Mouth : No sore throat, No Rhinorrhea Eyes: No Eye Pain, No Swelling, No Redness Cardiovascular : pos Chest Pain, No SOB, No Dyspnea on Exertion Respiratory : No Cough, No Sputum Gastrointestinal : No Nausea, No Vomiting, No Diarrhea, No abdominal Pain Genitourinary : No Dysuria, No Urinary Frequency, No Hematuria, Musculoskeletal : No joint pain, No Myalgias, No Joint Swelling Skin : No Skin Lesions, No rash Neuro : pos Weakness, pos Numbness, No Dizziness, positive Headache Psych : No Anxiety/Panic, No Depression Heme/Lymph: No Bruising, No Bleeding,No Lymphadenopathy Endocrine : No Polyuria, No Polydipsia All other systems reviewed and are negative [facility] Past Medical History Attestation statement: The following information was validated with the patient. Medical History Asthma Gastric reflux Gastritis Heartburn Hematuria Renal and ureteric calculus Surgical History History of esophagogastroduodenoscopy (EGD) History of surgery Social History Social History Patient Tobacco Use Status: Never used Tobacco Advance Directives: No Advance Directives Information Provided: Yes Physical Exam Vital Signs: Vital Signs: Last Vital Signs Temp 97.7 F 04/17/22 16:33 Pulse 91 04/17/22 16:33 Resp 16 04/17/22 16:33 BP 126/77 04/17/22 16:33 Pulse Ox 98 04/17/22 16:33 O2 Del Method 04/17/22 16:33 BMI result Body Mass Index 32.1 Appearance: Alert. Oriented X3. No acute distress. Eyes: Pupils equal, round and reactive to light. EOMi ENT: Pharynx normal. TMs normal bilaterally Neck: Normal inspection. Neck supple. no bruit CVS: Normal heart rate and rhythm. Pulses normal. Respiratory: No respiratory distress. Breath sounds normal. Abdomen: Soft and non-tender. Skin: Skin warm and dry. Normal skin color. Normal skin turgor. Extremities: No lower extremity edema. No calf ttp Neuro: Oriented X 3. L sided facial almost complete paralysis - cannot move eyebrow or forehead on left side otherwise, No motor deficit. No sensory deficit. 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 She also c/o atypical chest pain she has no ACS risk factors heart score is 0, she is on OCPs will obtain ddimer. Dispo per results and findings. If negative work up for chest pain will start on prednisone and antivirals. Lab Data Result diagrams: 04/17/22 17:08 04/17/22 17:08 Labs: Lab Results 04/17/22 04/17/22 04/17/22 Range/Units 17:08 17:08 17:08 WBC 5.6 (4.8-10.8) X10*3/uL RBC 4.61 (4.20-5.50) X10*6/uL Hgb 12.5 (12.0-16.0) g/dl Hct 40.1 (37.0-47.0) % MCV 87.0 (80.0-98.0) fL MCH 27.1 (27.0-33.0) pg MCHC 31.2 (31.0-35.0) g/dl RDW 12.3 (11.0-16.0) % Plt Count 246 (160-400) X10*3/uL MPV 10.5 (9.4-12.3) fL Immature Gran % (Auto) 0.2 (0.0-0.4) % Neut % (Auto) 50.2 (45-73) % Lymph % (Auto) 37.6 (20-40) % [place] % (Auto) 8.4 (2-11) % Eos % (Auto) 2.9 (0-4) % Baso % (Auto) 0.7 (0-2) % Lymph # (Auto) 2.1 (1.2-4.9) X10*3/uL [place] # (Auto) 0.5 (0.1-1.2) X10*3/uL Eos # (Auto) 0.2 (0.0-0.4) X10*3/uL Baso # (Auto) 0.0 (0.0-0.2) X10*3/uL Abs Immat Gran (auto) 0.01 (0.00-0.03) X10*3/uL Absolute Neuts (auto) 2.8 (2.0-8.3) x10*3/uL Absolute Nucleated RBC 0.000 (0.0-0.012) X10*3/uL Nucleated RBC % (auto) 0.0 (0.0-0.2) /100WBC ESR 11 (0-20) MM/HR D-Dimer High Sensitivty NG/ML Sodium 138 (135-145) mmol/L Potassium 4.2 (3.3-5.1) mmol/L Chloride 106 (96-108) mmol/L Carbon Dioxide 23 (22-29) mmol/L Anion Gap 13 (12-20) BUN 8 L (9-16) mg/dL Creatinine 0.69 (0.5-1.4) mg/dL Estim Creat Clear Calc 105.6 Estimated GFR > 60 Random Glucose 182 H (60-115) mg/dL Calcium 8.8 (8.4-10.2) mg/dL Troponin I High Sens (<3.5-17.0) ng/L Urine Test (NEGATIVE) 04/17/22 04/17/22 04/17/22 Range/Units 17:08 17:08 17:43 WBC (4.8-10.8) X10*3/uL RBC (4.20-5.50) X10*6/uL Hgb (12.0-16.0) g/dl Hct (37.0-47.0) % MCV (80.0-98.0) fL MCH (27.0-33.0) pg MCHC (31.0-35.0) g/dl RDW (11.0-16.0) % Plt Count (160-400) X10*3/uL MPV (9.4-12.3) fL Immature Gran % (Auto) (0.0-0.4) % Neut % (Auto) (45-73) % Lymph % (Auto) (20-40) % [place] % (Auto) (2-11) % Eos % (Auto) (0-4) % Baso % (Auto) (0-2) % Lymph # (Auto) (1.2-4.9) X10*3/uL [place] # (Auto) (0.1-1.2) X10*3/uL Eos # (Auto) (0.0-0.4) X10*3/uL Baso # (Auto) (0.0-0.2) X10*3/uL Abs Immat Gran (auto) (0.00-0.03) X10*3/uL Absolute Neuts (auto) (2.0-8.3) x10*3/uL Absolute Nucleated RBC (0.0-0.012) X10*3/uL Nucleated RBC % (auto) (0.0-0.2) /100WBC ESR (0-20) MM/HR D-Dimer High Sensitivty < 150 NG/ML Sodium (135-145) mmol/L Potassium (3.3-5.1) mmol/L Chloride (96-108) mmol/L Carbon Dioxide (22-29) mmol/L Anion Gap (12-20) BUN (9-16) mg/dL Creatinine (0.5-1.4) mg/dL Estim Creat Clear Calc Estimated GFR Random Glucose (60-115) mg/dL Calcium (8.4-10.2) mg/dL Troponin I High Sens < 3.5 (<3.5-17.0) ng/L Urine Test NEGATIVE (NEGATIVE) ECG Data Attestation: I personally reviewed and interpreted this ECG as follows: ECG interpretation date: 04/17/22 ECG interpretation time: 16:57 Interpretation: Rate: 85 Rhythm: NSR [place]: normal Normal P waves. Normal DANN. Normal QRS complex. ST T wave : normal no IRMA qTC: normal prior studies: no acute ischemia The study has been interpreted contemporaneously by me. . Scores Heart Score History: -0- slightly suspicious ECG: -0- normal Age: -0- < or = 45 Risk factory: -0- no risk factors known Troponin: -0- < or = normal limit Score: 0 Risk: 1.7% Discharge Plan Discharge Clinical Impression: Atypical chest pain, Cano's palsy Patient Disposition: Home, Self-Care Instructions: Chest Pain (ED), Cano Palsy (ED) Additional Instructions: return to ED for any worsening symptoms or concerns use lubricating eye drops you may need to tape your eye shut while sleeping to avoid an abrasion to your eyeball lyme test pending if positive we will call you Prescriptions: New prednisone 20 mg tablet 40 mg PO DAILY 5 Days Qty: 10 0RF valacyclovir [Valtrex] 1 gram tablet 1,000 mg PO TID 7 Days Qty: 21 0RF No Action levofloxacin 500 mg tablet 500 mg PO DAILY Qty: 9 0RF naproxen 500 mg tablet 500 mg PO BID PRN (Reason: pain) Qty: 20 0RF prednisone 20 mg tablet 40 mg PO DAILY Qty: 10 0RF ibuprofen 800 mg tablet 800 mg PO Q8H PRN (Reason: pain) Qty: 14 0RF tramadol 50 mg tablet 50 mg PO Q8H PRN (Reason: severe pain (scale score 7-10)) Qty: 6 0RF ciprofloxacin HCl [Cipro] 500 mg tablet 500 mg PO BID 5 Days Qty: 10 0RF ibuprofen 800 mg tablet 800 mg PO TID PRN (Reason: pain) pyridoxine (vitamin B6) 100 mg tablet 100 mg PO DAILY 90 Days Qty: 90 1RF famotidine [Pepcid] 40 mg tablet 40 mg PO BEDTIME Qty: 60 2RF Referrals: Ba Gan MD [Primary Care Provider] - 2 days (if not better) Stand Alone Forms: Work/School Release
[2022-04-17 17:15] LABS: MANUAL DIFF FLAG NO
[2022-04-17 17:18] LABS: Basophils Percent Auto 0.7 % (0-2); Eosinophils Absolute Auto 0.2 X10*3/uL (0.0-0.4); Eosinophils Percent Auto 2.9 % (0-4); Hematocrit 40.1 % (37.0-47.0); Hemoglobin 12.5 g/dl (12.0-16.0); Imm Gran Abs Auto 0.01 X10*3/uL (0.00-0.03); Imm Gran Pct Auto 0.2 % (0.0-0.4); Lymphocytes Absolute Auto 2.1 X10*3/uL (1.2-4.9); Lymphocytes Percent Auto 37.6 % (20-40); Mean Corpuscular HGB Conc 31.2 g/dl (31.0-35.0); Mean Corpuscular Hemoglobin 27.1 pg (27.0-33.0); Mean Platelet Volume 10.5 fL (9.4-12.3); Monocytes Absolute Auto 0.5 X10*3/uL (0.1-1.2); Monocytes Percent Auto 8.4 % (2-11); Neutrophils Absolute Auto 2.8 x10*3/uL (2.0-8.3); Neutrophils Percent Auto 50.2 % (45-73); Platelet Count 246 X10*3/uL (160-400); Red Blood Count 4.61 X10*6/uL (4.20-5.50); Red Cell Distribution Width 12.3 % (11.0-16.0); White Blood Count 5.6 X10*3/uL (4.8-10.8)
[2022-04-17 17:29] LABS: UPreg QC Valid YES; Urine Pregnancy NEGATIVE (NEGATIVE)
[2022-04-17 17:34] LABS: Anion Gap 13 (12-20); Blood Urea Nitrogen 8 mg/dL (9-16); Calcium 8.8 mg/dL (8.4-10.2); Carbon Dioxide 23 mmol/L (22-29); Chloride 106 mmol/L (96-108); Creatinine Clr Calc Pharmacy 105.6; Estimated Glomerular Filt Rate > 60; Glucose Random 182 mg/dL (60-115); Potassium 4.2 mmol/L (3.3-5.1); Sodium 138 mmol/L (135-145)
[2022-04-17 17:36] LABS: Troponin-I High Sensitivity < 3.5 ng/L (<3.5-17.0)
[2022-04-17 18:12] LABS: D Dimer High Sensitivity < 150 NG/ML
[2022-04-17 18:12] LABS: Erythrocyte Sedimentation Rate 11 MM/HR (0-20)
[2022-04-20 23:13] LABS: Lyme Abs Screen <0.90 index
== END 2022-04-17 18:38 | disposition home or self-care (01) ==
PROVIDERS: Emergency Provider Emergency Medicine; PCP Internal Medicine
DX: R07.89 Other chest pain (principal); G51.0 Bell's palsy; R20.0 Anesthesia of skin; R51.9 Headache, unspecified; Z79.899 Other long term (current) drug therapy
CPT/HCPCS: 36415; 70450; 80048; 81025; 84484; 85025; 85379; 85652; 86617; 86618; 93005; 99283; 99284

== ENCOUNTER 2022-09-15 08:48 | Day surgery (SDC) | payer MEDICAID, SELFPAY ==
--- NOTE | 2022-09-14 13:08 | HO.ANESPROP2 ---
Documented by User: Laina Pacheco NP 09/14/22 13:10 HPI - Anesthesia Eval Consult details Narrative: 46yo F for Upper Endoscopy PMFSH Active Problems Active Problems: All Active Problems (Updated 09/09/22 @ 15:53 by Imani Landrum, DANG) Gastritis (Acute) Renal and ureteric calculus (Acute) Hematuria (Acute) Past Medical History Medical History Asthma Gastric reflux Gastritis Heartburn Hematuria History of Cano's palsy Renal and ureteric calculus Surgical History Surgical History History of esophagogastroduodenoscopy (EGD) History of surgery Social History Social History Patient Tobacco Use Status: Never used Tobacco Use of substances other than those prescribed or required for medical reasons: No Are you DNR?: No Advance Directives: No Advance Directives Information Provided: Yes Meds Allergies Allergy/AdvReac Type Severity Reaction Status Date / Time shellfish derived Allergy Mild unknown Verified 09/09/22 15:54 acetaminophen [From PERCOCET] Allergy Unknown RASH/ITCHIN Verified 09/09/22 15:54 ESS oxycodone [From PERCOCET] Allergy Unknown RASH/ITCHIN Verified 09/09/22 15:54 ESS shrimp [SHRIMP] Allergy Unknown SWELLING Verified 09/09/22 15:54 Home Medications Medication Instructions Recorded Confirmed Last Taken Type albuterol sulfate 90 mcg/actuation 2 puff inhalation Q4-6H PRN 09/09/22 09/09/22 Unknown History aerosol inhaler (ProAir HFA) Wheezing cetirizine 10 mg tablet 1 tab PO DAILY 09/09/22 09/09/22 Unknown History Exam Exam Date and Time: September 14, 2022 1308 Pertinent Lab Results Pertinent Lab Results: Laboratory Tests 04/17/22 04/17/22 17:08 17:08 WBC 5.6 Hgb 12.5 Hct 40.1 Plt Count 246 Sodium 138 Potassium 4.2 Chloride 106 Carbon Dioxide 23 BUN 8 L Creatinine 0.69 Narrative Narrative: EKG 03/2022 Vent. Rate : 085 BPM ? ? Atrial Rate : 085 BPM ?? P-R Int : 138 ms? QRS Dur : 072 ms ? ? QT Int : 358 ms ? ? ? P-R-T Axes : 017 026 030 degrees ?? QTc Int : 426 ms ? Normal sinus rhythm Normal ECG No previous ECGs available Assessment and Plan Assessment Anesthesia Assessment: Chart Reviewed Documented by User: Shanna Brandt MD 09/15/22 10:22 PMFSH Active Problems Active Problems: All Active Problems (Updated 09/15/22 @ 10:09 by Shanna Brandt MD) Gastritis (Acute) Renal and ureteric calculus (Acute) Hematuria (Acute) Increased BMI Denies KARIS symptoms Asthma- inhalers prn but usually needs post surgical procedures Past Medical History Medical History Asthma Gastric reflux Gastritis Heartburn Hematuria History of Cano's palsy Renal and ureteric calculus Family History Family history of problems with anesthesia: No Surgical History Surgical History History of esophagogastroduodenoscopy (EGD) History of surgery History of Problems with Anesthesia: Yes (PONV. Usually needs albuterol inhaler after procedures) Social History Social History Patient Tobacco Use Status: Never used Tobacco Use of substances other than those prescribed or required for medical reasons: No Are you DNR?: No Advance Directives: No Advance Directives Information Provided: Yes Meds Allergies Allergy/AdvReac Type Severity Reaction Status Date / Time shellfish derived Allergy Mild unknown Verified 09/09/22 15:54 acetaminophen [From PERCOCET] Allergy Unknown RASH/ITCHIN Verified 09/09/22 15:54 ESS oxycodone [From PERCOCET] Allergy Unknown RASH/ITCHIN Verified 09/09/22 15:54 ESS shrimp [SHRIMP] Allergy Unknown SWELLING Verified 09/09/22 15:54 Home Medications Medication Instructions Recorded Confirmed Last Taken Type albuterol sulfate 90 mcg/actuation 2 puff inhalation Q4-6H PRN 09/09/22 09/09/22 Unknown History aerosol inhaler (ProAir HFA) Wheezing cetirizine 10 mg tablet 1 tab PO DAILY 09/09/22 09/09/22 Unknown History Exam Height,Weight and Vital Signs: Height 5 ft 3 in Weight 81.647 kg Vital Signs Temp Pulse Resp BP Pulse Ox O2 Del Method 09/15/22 09:36 97.3 F 85 16 106/70 97 Room Air Airway Mallampati Class: III TM Dist: >3cm Neck ROM: Full Loose/Missing/Broken Teeth: No (Denies broken, loose, missing teeth) Heart: RRR Lungs: CTAB Assessment and Plan Assessment Anesthesia Assessment: Anesthesia Plan Discussed Final Anesthetic Review Family History of Problems with Anesthesia: No History of Problems with Anesthesia: Yes (PONV. Usually needs albuterol inhaler after procedures) NPO: Yes ASA Class: II Final Preanesthetic Review: No Changes in Pt Med Stat, Meds/Allgs Chart Reviewed, Consent Obtained/Reviewed and Anes Risks/Benef Reviewed Patient Risk: Intermediate Procedure Risk: Low Assessment/Block/Sedation in SS: Assess/Block/Sedation-SS Anesthetic Plan Anesthetic Plan: MAC: Disposition: Standard PACU
[2022-09-15 09:12] VITALS: BMI 31.8
[2022-09-15 09:36] VITALS: BP 106/70; PULSE 85; RESP 16; TEMP 36.3; O2SAT 97
[2022-09-15] MEDS: Lactated Ringers 1,000 ML 100 ML IVCONT (09:38)
--- NOTE | 2022-09-15 10:06 | MHC.SHP ---
Pre-Procedural Eval Section A Date of Service: 09/15/22 Section B Chief Complaint: Gastritis,without bleeding Relevant Family History (Specify if Yes): No Relevant Social History: None Present Medications: see Short Stay Collaborative assessment Medical History: Significant History (Asthma Gastric reflux Gastritis Heartburn Hematuria Renal and ureteric calculus) History of Previous Operations: Relevant previous surgery/procedure and date(s) (EGD) Allergies: Allergies Allergy/AdvReac Type Severity Reaction Status Date / Time shellfish derived Allergy Mild unknown Verified 09/09/22 15:54 acetaminophen [From PERCOCET] Allergy Unknown RASH/ITCHIN Verified 09/09/22 15:54 ESS oxycodone [From PERCOCET] Allergy Unknown RASH/ITCHIN Verified 09/09/22 15:54 ESS shrimp [SHRIMP] Allergy Unknown SWELLING Verified 09/09/22 15:54 Review of Systems Sugical H&P ROS: Negative: Constitution, Cardiovascular, Respiratory, Neurological, Psychiatric, Hem-Onc, Allergic/Immunologic, Gastrointestinal, Genitourinary, Musculoskeletal, Integumentary, Endocrine and Eyes/Ears/Nose/Throat Exam Surgical H&P Exam: Normal: HEENT, Normal: Heart, Normal: Lungs, Normal: Extremities, Normal: Abdomen, Normal: Skin and Normal: Neurological Plan Diagnosis/Plan: Unchanged I have reviewed the history and physical and performed a pertinent physical examination on my patient. No changes have occurred unless specified. Time Spent With Patient Time: Total time managing care of this patient today ____ minutes.
--- NOTE | 2022-09-15 10:28 | W.PM.OPN ---
Operative Note Operative Note Date of Service: 09/15/22 Narrative: Procedure Description: EGD Indication: GERD, Anesthesia: MAC FLEXIBLE TRANSORAL UPPER GASTROINTESTINAL ENDOSCOPY UPPER ENDOSCOPY Consent: Indications for the procedure and potential complications of bleeding, perforation, reaction to medications and missed diagnosis were discussed with the patient and informed consent was obtained. Instrument: Olympus GIF H 190 J mid size upper endoscope Monitoring: Vital signs and clinical assessment, continuous EKG monitoring, Pulse oximetry, Carbon Dioxide monitoring and blood pressure monitoring were done throughout the procedure. Procedure: The patient was placed in the left lateral decubitis position and pre-procedure medications were administered and a bite block was placed. The endoscope was inserted into the mouth and advanced under direct vision to the third part of duodenum. A careful inspection was made as the upper endoscope was withdrawn including a retroflexed examination of the proximal stomach; Findings and interventions are described below. Findings: Larynx:normal Esophagus: GE junction at 35 cm, diaphragm hiatus at 37 cm, consistent with 2 cm sliding hiatal hernia, schatzki ring noted, with LA grade A erosive esophagitis, bx taken from GEJ, distal and proximal esophagus Stomach: Patchy gastric erythema. Biopsies were obtained. Grade 2 flap valve on retroflexed examination of the cardia. Duodenum: duodenitis noted, bx taken Intervention: Biopsies as noted above Impression/Findings: erosive esophagitis hiatal hernia schatzki ring gastritis duodenitis PLAN: reflux precautions Optimize PPI treatment, if h pylori pos then treat
[2022-09-15 10:47] VITALS: BP 114/77; PULSE 103; RESP 18; TEMP 36.8; O2SAT 98
[2022-09-15] MEDS: Albuterol Sulfate (0.083%) 2.5 MG/3 ML VIAL.NEB INHALE (11:00)
[2022-09-15 11:02] VITALS: BP 113/60; PULSE 89; RESP 18; TEMP 36.7; O2SAT 98
== END 2022-09-15 12:03 | disposition home or self-care (01) ==
PROVIDERS: PCP Internal Medicine; Visit Provider Internal Medicine Gastroenterology
PROC: 0DJ08ZZ Inspection of Upper Intestinal Tract, Via Natural or Artificial Opening Endoscopic (ICD-10-PCS; CPT 43235; principal; 2022-09-15 10:10)
DX: K29.70 Gastritis, unspecified, without bleeding (principal); K21.9 Gastro-esophageal reflux disease without esophagitis; K29.80 Duodenitis without bleeding; K20.80 Other esophagitis without bleeding; K22.2 Esophageal obstruction; K44.9 Diaphragmatic hernia without obstruction or gangrene; J45.909 Unspecified asthma, uncomplicated; N20.0 Calculus of kidney; K59.00 Constipation, unspecified; Z79.899 Other long term (current) drug therapy; Z79.1 Long term (current) use of non-steroidal anti-inflammatories (NSAID); Z88.8 Allergy status to other drugs, medicaments and biological substances
CPT/HCPCS: 43239; 88305; 88342; J1100; J2405

== ENCOUNTER 2022-10-26 09:42 | Emergency (ER) | payer MEDICAID, SELFPAY ==
--- NOTE | ~2022-10-26 | XR_ITS ---
EXAMINATION: XR RIBS, LEFT CLINICAL INFORMATION: Left-sided ribs pain COMPARISON: None TECHNIQUE: 3 views of the left ribs and chest PA were obtained. FINDINGS: Radiopaque markers have been placed over the area of pain and correspond to the lower anterior ribs on the left Lungs are clear. No consolidation, pneumothorax, or pleural effusion. The cardiomediastinal silhouette and pulmonary vasculature are normal. Osseous structures are unremarkable. Ribs are intact. No fractures are identified. XR/XR ribs LT min 3V w CXR1V IMPRESSION: Unremarkable examination.
[2022-10-26 09:45] VITALS: BP 125/83; PULSE 85; RESP 18; TEMP 36.4; O2SAT 99; BMI 31.8
[2022-10-26 10:06] LABS: Appearance Urine Clear; Color Urine Yellow; Glucose Urine UA 500 mg/dL (Negative); Leukocyte Esterase Urine Negative (Negative); Nitrite Urine Negative (Negative); PH 5.5 (5.0-9.0); Specific Gravity - Urine 1.025 (1.005-1.025); Urine Blood Negative (Negative); Urine Ketones Negative (Negative); Urine Protein Negative (Neg-Trace)
[2022-10-26 10:16] VITALS: BP 113/75; PULSE 84; RESP 14; TEMP 36.9; O2SAT 96
[2022-10-26 10:19] LABS: MANUAL DIFF FLAG NO
[2022-10-26 10:23] LABS: Basophils Absolute Auto 0.1 X10*3/uL (0.0-0.2); Basophils Percent Auto 0.8 % (0-2); Eosinophils Absolute Auto 0.2 X10*3/uL (0.0-0.4); Eosinophils Percent Auto 3.2 % (0-4); Hematocrit 41.6 % (37.0-47.0); Hemoglobin 13.3 g/dl (12.0-16.0); Imm Gran Abs Auto 0.01 X10*3/uL (0.00-0.03); Imm Gran Pct Auto 0.2 % (0.0-0.4); Lymphocytes Absolute Auto 2.1 X10*3/uL (1.2-4.9); Lymphocytes Percent Auto 32.5 % (20-40); Mean Corpuscular Hemoglobin 28.4 pg (27.0-33.0); Mean Corpuscular Volume 88.9 fL (80.0-98.0); Mean Platelet Volume 10.2 fL (9.4-12.3); Monocytes Absolute Auto 0.6 X10*3/uL (0.1-1.2); Monocytes Percent Auto 9.6 % (2-11); Neutrophils Absolute Auto 3.5 x10*3/uL (2.0-8.3); Neutrophils Percent Auto 53.7 % (45-73); Platelet Count 243 X10*3/uL (160-400); Red Blood Count 4.68 X10*6/uL (4.20-5.50); Red Cell Distribution Width 11.6 % (11.0-16.0); White Blood Count 6.6 X10*3/uL (4.8-10.8)
[2022-10-26 10:45] LABS: Anion Gap 11 (12-20); Blood Urea Nitrogen 8 mg/dL (9-16); Calcium 8.9 mg/dL (8.4-10.2); Carbon Dioxide 24 mmol/L (22-29); Chloride 107 mmol/L (96-108); Creatinine Clr Calc Pharmacy 106.8; Estimated Glomerular Filt Rate > 60; Glucose Random 140 mg/dL (60-115); Potassium 4.2 mmol/L (3.3-5.1); Sodium 138 mmol/L (135-145)
[2022-10-26 11:13] VITALS: BP 116/75; PULSE 76; RESP 16; O2SAT 96
[2022-10-26 11:43] LABS: Alanine Aminotransferase 95 U/L (0-31); Alkaline Phosphatase 66 U/L (39-117); Aspartate Amino Transferase 52 U/L (5-31); Bilirubin Direct 0.2 mg/dL (0.0-0.5); Bilirubin Total 0.5 mg/dL (0.0-1.0); Lipase 26 U/L (8-78); Magnesium 1.7 mg/dL (1.6-2.6); Total Protein 6.5 g/dL (6.5-8.0)
[2022-10-26 11:50] LABS: HCG Quantitative < 2 mIU/mL
--- NOTE | 2022-10-26 12:48 | ED_ITS ---
HPI - Abdominal Pain General Chief Complaint: Abdominal Pain Stated Complaint: l side pain Time Seen by Provider: 10/26/22 12:47 Source: patient Mode of arrival: ambulatory History of Present Illness HPI narrative: 46-year-old female with a past medical history of asthma, GERD, gastritis, renal calculus, presenting to the ED complaining left side pain/beneath left breast x4 days. Admits was seen at urgent care in Wednesday told she could of herpes zoster, prescribed Valtrex however did not take. Reports pain worse with movement and palpation. Denies shortness of breath, nausea/vomiting, diarrhea, pedal edema, cigarette smoking, or OCPs, history of clots MD elicited complaint: abdominal pain Related Data Home Medications Medication Instructions Recorded Confirmed albuterol sulfate 90 mcg/actuation 2 puff inhalation Q4-6H PRN 09/09/22 09/09/22 aerosol inhaler (ProAir HFA) Wheezing cetirizine 10 mg tablet 1 tab PO DAILY 09/09/22 09/09/22 Previous Rx's Medication Instructions Recorded naproxen 500 mg tablet 500 mg PO BID PRN pain #20 tabs 04/09/21 pyridoxine (vitamin B6) 100 mg 100 mg PO DAILY 90 days #90 tabs 05/28/21 tablet tramadol 50 mg tablet 50 mg PO Q8H PRN severe pain 12/10/21 (scale score 7-10) #6 tabs valacyclovir 1 gram tablet 1,000 mg PO TID 7 days #21 tabs 04/17/22 (Valtrex) omeprazole 40 mg capsule,delayed 40 mg PO BID #60 caps 09/15/22 release ketorolac 10 mg tablet 10 mg PO TID PRN pain 5 days #15 10/26/22 tabs lidocaine 5 % topical patch 1 patch topical DAILY PRN pain #30 10/26/22 (Lidoderm) ea Allergies Allergy/AdvReac Type Severity Reaction Status Date / Time shellfish derived Allergy Mild unknown Verified 09/09/22 15:54 acetaminophen [From PERCOCET] Allergy Unknown RASH/ITCHIN Verified 09/09/22 15:54 ESS oxycodone [From PERCOCET] Allergy Unknown RASH/ITCHIN Verified 09/09/22 15:54 ESS shrimp [SHRIMP] Allergy Unknown SWELLING Verified 09/09/22 15:54 Review of Systems Review of Systems Constitutional: No Fever, No Chills, No Fatigue, No Malaise ENT/Mouth: No Ear Pain, No Nasal Congestion, No sore throat, No Rhinorrhea, No Swallowing Difficulty Eyes: No Eye Pain, No Swelling, No Redness, No Vision Changes Cardiovascular: + Chest Wall Pain, No SOB, No Dyspnea on Exertion, No Orthopnea, No Edema, No Palpitations Respiratory: No Cough, No Sputum, No Dyspnea Gastrointestinal: No Nausea, No Vomiting, No Diarrhea, No Constipation, No Abdominal pain Genitourinary: No Dysuria, No Urinary Frequency, No Hematuria, No Flank Pain, No Hesitancy Musculoskeletal: No joint pain, No Myalgias, No Joint Swelling Skin: No Skin Lesions, No rash Neuro: No Weakness, No Numbness, No Dizziness, No Headache Yes all other systems are reviewed and are negative Constitutional: Reports as per [facility] Past Medical History Attestation statement: The following information was validated with the patient. Medical History Asthma Gastric reflux Gastritis Heartburn Hematuria History of Cano's palsy Renal and ureteric calculus Surgical History History of esophagogastroduodenoscopy (EGD) History of surgery Social History Social History Alcohol intake: never Patient Tobacco Use Status: Never used Tobacco Smoked in Last 30 Days: No Use of substances other than those prescribed or required for medical reasons: No Advance Directives: No Advance Directives Information Provided: Yes Patient : No Physical Exam ED Vital Signs: Vital Signs - 24 hr 10/26/22 09:45 10/26/22 10:16 10/26/22 11:13 Temperature 97.6 F 98.4 F Pulse Rate 85 84 76 Respiratory Rate 18 14 16 Blood Pressure 125/83 113/75 116/75 Pulse Oximetry 99 96 96 Oxygen Delivery Method Room Air Room Air Room Air 10/26/22 13:30 Temperature Pulse Rate 75 Respiratory Rate 16 Blood Pressure 110/69 Pulse Oximetry 99 Oxygen Delivery Method Room Air BMI result Body Mass Index 31.8 Const General: cooperative, healthy appearing, no acute distress, alert and awake Orientation/consciousness: patient oriented x3 Limitations: no limitations HENMT Head: Yes normal to inspection and Yes atraumatic Ears: hearing grossly normal bilaterally General nose exam: Normal external nose present Face and sinus: Yes normal facial exam Eyes General: appearance normal, both eyes and all related structures EOM: EOMs intact bilaterally Neck Neck: Yes normal visual inspection and Yes no meningeal signs Chest Other: + tenderness to left anterior lateral chest wall reproducing subjective complaint. No crepitus/ecchymosis or erythema. No flail chest. No rash. Chest palpation & inspection: normal inspection of the chest, no crepitus and tenderness Resp Effort & Inspection: normal respiratory effort and no respiratory distress Auscultation: clear to auscultation bilaterally, no crackles, no rales, no rhonchi and no wheezes Cardio Rate: regular rate Heart sounds: S1 normal heart sound present and S2 normal heart sound present GI Inspection: Yes normal to inspection Palpation (GI): Soft to palpation, nontender, no guarding and not rigid General: Yes no CVA tenderness Back/Spine/Pelvis Back: no CVA tenderness Skin Rashes: no rashes Wounds: no wounds Neuro General: patient oriented x3, tone normal and no meningeal signs Gait exam (Neuro): Normal gait present Extrem General: Yes normal to inspection, Yes no pedal edema and Yes no calf tenderness Course Course Course Narrative: -1432--no leukocytosis. Labs otherwise reassuring. Chronic transaminitis. Troponin negative -D-dimer negative -UA not infected XR ribs LT min 3V w CXR1V IMPRESSION: Unremarkable examination. >1657--patient reports symptomatic improvement after Toradol/Lidoderm patches given in the ED. Results discussed with patient with automotive parts interpreter incl uding worrisome signs and symptoms and strict return precautions, and when to return to the emergency department. They verbalized understanding and feel safe for discharge at this time. Medical Decision Making Medical Decision Making MDM Narrative: 46-year-old female with a past medical history of asthma, GERD, gastritis, renal calculus, presenting to the ED complaining left side pain/beneath left breast x4 days. On exam vital signs stable, NAD/nontoxic-appearing, reproducible chest wall tenderness as elicited above. Abdomen soft/nontender, no CVA tenderness. Concern for pneumonia vs PE vs rib fracture/contusion. No evidence of herpes zoster/rash or injury. Lower suspicion for intra-abdominal process or renal stone/pyelo Plan: EKG, labs, UA, CXR, pain control, reassess Please refer to course for remaining clinical decision making, interpretation of labs/imaging results, and discussions with consultants and/or family members. Differential Diagnosis Differential Diagnoses: The differential diagnosis associated with the presentation includes as above Admission/Observation Consideration of admission/observation: Escalation of care including admi ssion/observation considered Lab Data MDM Lab Attestation statement: I reviewed the patient's lab results. 10/26/22 10:14 10/26/22 10:14 Labs: Lab Results 10/26/22 10/26/22 10/26/22 Range/Units 09:56 10:14 10:14 WBC 6.6 (4.8-10.8) X10*3/uL RBC 4.68 (4.20-5.50) X10*6/uL Hgb 13.3 (12.0-16.0) g/dl Hct 41.6 (37.0-47.0) % MCV 88.9 (80.0-98.0) fL MCH 28.4 (27.0-33.0) pg MCHC 32.0 (31.0-35.0) g/dl RDW 11.6 (11.0-16.0) % Plt Count 243 (160-400) X10*3/uL MPV 10.2 (9.4-12.3) fL Immature Gran % (Auto) 0.2 (0.0-0.4) % Neut % (Auto) 53.7 (45-73) % Lymph % (Auto) 32.5 (20-40) % [place] % (Auto) 9.6 (2-11) % Eos % (Auto) 3.2 (0-4) % Baso % (Auto) 0.8 (0-2) % Lymph # (Auto) 2.1 (1.2-4.9) X10*3/uL [place] # (Auto) 0.6 (0.1-1.2) X10*3/uL Eos # (Auto) 0.2 (0.0-0.4) X10*3/uL Baso # (Auto) 0.1 (0.0-0.2) X10*3/uL Abs Immat Gran (auto) 0.01 (0.00-0.03) X10*3/uL Absolute Neuts (auto) 3.5 (2.0-8.3) x10*3/uL Absolute Nucleated RBC 0.000 (0.0-0.012) X10*3/uL Nucleated RBC % (auto) 0.0 (0.0-0.2) /100WBC D-Dimer High Sensitivty NG/ML Sodium 138 (135-145) mmol/L Potassium 4.2 (3.3-5.1) mmol/L Chloride 107 (96-108) mmol/L Carbon Dioxide 24 (22-29) mmol/L Anion Gap 11 L (12-20) BUN 8 L (9-16) mg/dL Creatinine 0.68 (0.5-1.4) mg/dL Estim Creat Clear Calc 106.8 Estimated GFR > 60 Random Glucose 140 H (60-115) mg/dL Calcium 8.9 (8.4-10.2) mg/dL Magnesium 1.7 (1.6-2.6) mg/dL Total Bilirubin 0.5 (0.0-1.0) mg/dL Direct Bilirubin 0.2 (0.0-0.5) mg/dL AST 52 H (5-31) U/L ALT 95 H (0-31) U/L Alkaline Phosphatase 66 (39-117) U/L Troponin I High Sens (<3.5-17.0) ng/L Total Protein 6.5 (6.5-8.0) g/dL Albumin 4.0 (3.5-5.0) g/dL Lipase 26 (8-78) U/L Beta HCG, Quant < 2 mIU/mL Urine Color Yellow Urine Appearance Clear Urine pH 5.5 (5.0-9.0) Ur Specific [place] 1.025 (1.005-1.025) Urine Protein Negative (Neg-Trace) mg/dL Urine Glucose (UA) 500 H (Negative) mg/dL Urine Ketones Negative (Negative) mg/dL Urine Blood Negative (Negative) Urine Nitrite Negative (Negative) Ur Leukocyte Esterase Negative (Negative) 10/26/22 10/26/22 Range/Units 13:34 13:34 WBC (4.8-10.8) X10*3/uL RBC (4.20-5.50) X10*6/uL Hgb (12.0-16.0) g/dl Hct (37.0-47.0) % MCV (80.0-98.0) fL MCH (27.0-33.0) pg MCHC (31.0-35.0) g/dl RDW (11.0-16.0) % Plt Count (160-400) X10*3/uL MPV (9.4-12.3) fL Immature Gran % (Auto) (0.0-0.4) % Neut % (Auto) (45-73) % Lymph % (Auto) (20-40) % [place] % (Auto) (2-11) % Eos % (Auto) (0-4) % Baso % (Auto) (0-2) % Lymph # (Auto) (1.2-4.9) X10*3/uL [place] # (Auto) (0.1-1.2) X10*3/uL Eos # (Auto) (0.0-0.4) X10*3/uL Baso # (Auto) (0.0-0.2) X10*3/uL Abs Immat Gran (auto) (0.00-0.03) X10*3/uL Absolute Neuts (auto) (2.0-8.3) x10*3/uL Absolute Nucleated RBC (0.0-0.012) X10*3/uL Nucleated RBC % (auto) (0.0-0.2) /100WBC D-Dimer High Sensitivty < 150 NG/ML Sodium (135-145) mmol/L Potassium (3.3-5.1) mmol/L Chloride (96-108) mmol/L Carbon Dioxide (22-29) mmol/L Anion Gap (12-20) BUN (9-16) mg/dL Creatinine (0.5-1.4) mg/dL Estim Creat Clear Calc Estimated GFR Random Glucose (60-115) mg/dL Calcium (8.4-10.2) mg/dL Magnesium (1.6-2.6) mg/dL Total Bilirubin (0.0-1.0) mg/dL Direct Bilirubin (0.0-0.5) mg/dL AST (5-31) U/L ALT (0-31) U/L Alkaline Phosphatase (39-117) U/L Troponin I High Sens < 3.5 (<3.5-17.0) ng/L Total Protein (6.5-8.0) g/dL Albumin (3.5-5.0) g/dL Lipase (8-78) U/L Beta HCG, Quant mIU/mL Urine Color Urine Appearance Urine pH (5.0-9.0) Ur Specific [place] (1.005-1.025) Urine Protein (Neg-Trace) mg/dL Urine Glucose (UA) (Negative) mg/dL Urine Ketones (Negative) mg/dL Urine Blood (Negative) Urine Nitrite (Negative) Ur Leukocyte Esterase (Negative) Independent Interpretation I performed an independent interpretation of an: EKG Radiology Impression Discussion of test interpretation with radiology: I have reviewed the radiologist's reading. External Record Review External record reviewed: Outpatient record, Prior outpatient labs and Prior outpatient radiology Prescription Management I considered prescription management with: Pain Medication Medications Administered Discontinued Medications Generic Name Dose Route Start Last Admin Trade Name Freq PRN Reason Stop Dose Admin Ketorolac Tromethamine 30 mg 10/26/22 12:56 10/26/22 13:19 Ketorolac Tromethamine 30 Mg/Ml Vial IM 10/26/22 12:57 30 mg ONCE ONE Administration Lidocaine 1 patch 10/26/22 12:56 10/26/22 13:19 Lidocaine 4 % Patch Adh..Patch TRANSDERMA 10/26/22 12:57 1 patch ONCE ONE Administration Protocol Discharge Plan Discharge Clinical Impression: Rib pain on left side Patient Disposition: Home, Self-Care Instructions: Rib Contusion (ED) Additional Instructions: Your blood work and x-ray were reassuring Toradol as an anti-inflammatory/pain medication, take with food. Do not take both Toradol, Motrin/ibuprofen or naproxen as or similar medications You may also use Lidoderm patches and Tylenol Follow-up with your doctor If symptoms persist or worsen return to the ED Paz an?lisis de kyle y akash X fueron tranquilizadores. Toradol adiel medicamento antiinflamatorio/analg?sico, t?[place] con alimentos. No tome tanto Toradol, Motrin/ibuprofeno o naproxeno adiel medicamentos similares. Tambi?n puede usar parches de Lidoderm y Tylenol Seguimiento con paz m?dico Si los s?ntomas persisten o empeoran, regrese al servicio de urgencias. Prescriptions: New ketorolac 10 mg tablet 10 mg PO TID PRN (Reason: pain) 5 Days Qty: 15 0RF lidocaine [Lidoderm] 5 % adhesive patch,medicated 1 patch topical DAILY MDD remove after 12 hours PRN (Reason: pain) Qty: 30 0RF Rx Instructions: leave on most painful area for up to 12 hrs No Action omeprazole 40 mg capsule,delayed release(DR/EC) 40 mg PO BID Qty: 60 2RF naproxen 500 mg tablet 500 mg PO BID PRN (Reason: pain) Qty: 20 0RF tramadol 50 mg tablet 50 mg PO Q8H PRN (Reason: severe pain (scale score 7-10)) Qty: 6 0RF valacyclovir [Valtrex] 1 gram tablet 1,000 mg PO TID 7 Days Qty: 21 0RF albuterol sulfate [ProAir HFA] 90 mcg/actuation HFA aerosol inhaler 2 puff inhalation Q4-6H PRN (Reason: Wheezing) cetirizine 10 mg tablet 1 tab PO DAILY pyridoxine (vitamin B6) 100 mg tablet 100 mg PO DAILY 90 Days Qty: 90 1RF Referrals: Ba Gan MD [Primary Care Provider] - 3 days Interventions: ED Discharge Assessment Last Done: 10/26/22 17:28 Discharge Date/Time: 10/26/22 17:28 Print Language: Mongolian
--- NOTE | 2022-10-26 12:56 | ECG_ITS ---
Test Reason : rib pain Blood Pressure : / mmHG Vent. Rate : 081 BPM Atrial Rate : 081 BPM P-R Int : 136 ms QRS Dur : 070 ms QT Int : 378 ms P-R-T Axes : 014 018 013 degrees QTc Int : 439 ms Normal sinus rhythm Normal ECG When compared with ECG of 17-APR-2022 16:41, No significant change was found Referred By: Amy Lucio Electronically Signed By:ISAMAR PAETL MD
[2022-10-26] MEDS: Lidocaine 4 % Patch ADH..PATCH 1 PATCH TRANSDERMA (13:19)
[2022-10-26] MEDS: Ketorolac Tromethamine 30 MG/ML VIAL IM (13:19)
[2022-10-26 13:30] VITALS: BP 110/69; PULSE 75; RESP 16; O2SAT 99
[2022-10-26 13:51] LABS: D Dimer High Sensitivity < 150 NG/ML
[2022-10-26 14:02] LABS: Troponin-I High Sensitivity < 3.5 ng/L (<3.5-17.0)
== END 2022-10-26 17:28 | disposition home or self-care (01) ==
PROVIDERS: Physician Assistant; Physician Assistant Medical; Emergency Provider Emergency Medicine; PCP Internal Medicine
DX: R07.81 Pleurodynia (principal); Z79.899 Other long term (current) drug therapy
CPT/HCPCS: 36415; 71101; 80048; 80076; 81003; 83690; 83735; 84484; 84702; 85025; 85379; 93005; 96372; 99284; 99285; J1885

== ENCOUNTER 2023-07-30 09:44 | Outpatient (REF) | payer MEDICAID, SELFPAY ==
[2023-08-02 14:04] LABS: H Pylori Breath Test Negative (Negative)
== END 2023-07-30 09:45 | disposition home or self-care (01) ==
LOC: CF 09:44
PROVIDERS: PCP Internal Medicine; Visit Provider Internal Medicine Gastroenterology
DX: Z01.818 Encounter for other preprocedural examination (principal); K29.70 Gastritis, unspecified, without bleeding; K21.9 Gastro-esophageal reflux disease without esophagitis; R05.9 Cough, unspecified
CPT/HCPCS: 83013; 99212

== ENCOUNTER 2023-07-30 09:44 | Outpatient (AMB) | payer MEDICAID, SELFPAY ==
[2023-07-30 09:52] VITALS: BP 117/75; PULSE 89; BMI 31.6
--- NOTE | 2023-07-30 09:52 | A.OFFVIS_ITS ---
Intake Vital Signs 07/30/23 09:52 Height 5 ft 3 in Weight 178 lb 9.191 oz BMI 31.6 BP 117/75 Blood Pressure Location Lt brachial Position Sitting Pulse 89 Intake Visit Reasons: f/u rediscuss colonoscopy Intake Note: No presents in the office as a follow up to discuss colonoscopy. CC: She states that she is having lots of acid reflux. She has to eat slowle because if she goes too fast she starts getting coughs. Allergies shellfish derived Allergy (Mild, Verified 07/30/23 09:52) unknown acetaminophen [From PERCOCET] Allergy (Unknown, Verified 07/30/23 09:52) RASH/ITCHINESS oxycodone [From PERCOCET] Allergy (Unknown, Verified 07/30/23 09:52) RASH/ITCHINESS shrimp [SHRIMP] Allergy (Unknown, Verified 07/30/23 09:52) SWELLING HPI f/u rediscuss colonoscopy HPI Details 47 yr old f being seen for f/u RECAP: Had seen Sanky for GERD ?She? had an EGD that revealed hemorrhagic erosive gastritis with a hiatal hernia and? inflammation to the esophagus 2019 she had been given dexilant she is following up with urology in [place] for hematuria and kidney stones H pylori was negative INTERIM: she is not taking any PPI right now, no benefit from dexilant her heartburn is v bad she denies bad taste in mouth, she denies nausea she has to eat slowly otherwise she chokes denies epigastric pain last EGD 09/21 with small hernia, chronic esophagitis at GEJ and IEL in duodenum EXAM: GENERAL: The patient is well developed and nontoxic. VITAL SIGNS:see workflow HEENT: Nonicteric sclerae, PERRLA, EOMI. Oropharynx clear. Moist mucous membranes. Conjunctivae appear well perfused. No thyroid mass. CHEST: Chest wall is nontender. HEART: Regular rate and rhythm without murmurs. LUNGS: Clear to auscultation bilaterally. ABDOMEN: Soft, positive bowel sounds, nontender, no organomegaly.no flank tenderness SKIN: No rash, no excessive bruising, petechiae, or purpura. NEUROLOGIC: Cranial nerves II-XII intact without motor/sensory deficit. A/P: 1/ Hx of gastritis and GERD, h pylori n egative --was off PPI, sx worse 2/ colon screening PLAN: 1/ repeat EGD, to reassess gastritis and erosions 2/ colonoscopy with suprep 3/ h pylori breath test [facility] Medical History History of Cano's palsy Renal and ureteric calculus Hematuria Gastritis Heartburn Gastric reflux Asthma Surgical History History of esophagogastroduodenoscopy (EGD) History of surgery Family History (Updated 07/30/23 @ 09:58 by NICOLA Vuong) Maternal Uncle Colon cancer Social History Alcohol intake: never Patient Tobacco Use Status: Never used Tobacco Physical Exam Vital Signs: Last Vital Signs Pulse 89 07/30/23 09:52 BP 117/75 07/30/23 09:52 BMI result Body Mass Index 31.6 Assessment & Plan Assessment & Plan (1) Gastritis: Code(s): K29.70 - Gastritis, unspecified, without bleeding Plan A/P: 1/ Hx of gastritis and GERD, h pylori negative --was off PPI, sx worse 2/ colon screening PLAN: 1/ repeat EGD, to reassess gastritis and erosions 2/ colonoscopy with suprep 3/ h pylori breath test Orders: Orders H Pylori Breath Test Today Medications: New sodium,potassium,mag sulfates 17.5-3.13-1.6 gram (Suprep Bowel Prep Kit) DILUTE; drink 1/2 at 6-8 pm and half at 11 PM- 1AM 354 mL 0RF lansoprazole 30 mg PO DAILY 30 caps 3RF Coding Level of Care Code Est Pt Level 3 (31445) Diagnoses Gastritis K29.70
== END 2023-07-30 10:13 | disposition home or self-care (01) ==
PROVIDERS: PCP Internal Medicine; Referring Provider Internal Medicine; Visit Provider Internal Medicine Gastroenterology
DX: K29.70 Gastritis, unspecified, without bleeding (principal)
CPT/HCPCS: 99213

== ENCOUNTER 2023-09-03 08:59 | Outpatient (REF) | payer MEDICAID, SELFPAY | END 2023-09-03 09:00 | disposition home or self-care (01) | LOC: HO.CHCLDS 08:59 | PROVIDERS: Visit Provider Internal Medicine | DX: E11.9 Type 2 diabetes mellitus without complications (principal) | CPT/HCPCS: 36415; 80053; 82043; 82570; 83036 ==

== ENCOUNTER 2023-09-09 09:33 | Outpatient (REF) | payer MEDICAID, SELFPAY | END 2023-09-09 09:34 | disposition home or self-care (01) | LOC: HO.NEURO 09:33 | PROVIDERS: PCP Internal Medicine; Visit Provider Internal Medicine | DX: Z13.89 Encounter for screening for other disorder (principal) ==

== ENCOUNTER 2023-12-24 08:57 | Outpatient (AMB) | payer MEDICAID, SELFPAY ==
--- NOTE | 2023-12-24 09:03 | A.OFFVIS_ITS ---
Vital Signs 12/24/23 09:06 Height 5 ft 3 in Weight 180 lb 12.465 oz BMI 32.0 BP 127/75 Blood Pressure Location Lt brachial Position Sitting Pulse 82 Intake Visit Reasons: 4month follow up Intake Note: No presents in the office as a 4 month follow up. CC: She states that she has been having a lot of acid reflux and she was not taking lansoprazole because her heartrate went up when she took it. 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: No Allergies shellfish derived Allergy (Mild, Verified 12/24/23 09:06) unknown acetaminophen [From PERCOCET] Allergy (Unknown, Verified 12/24/23 09:06) RASH/ITCHINESS oxycodone [From PERCOCET] Allergy (Unknown, Verified 12/24/23 09:06) RASH/ITCHINESS shrimp [SHRIMP] Allergy (Unknown, Verified 12/24/23 09:06) SWELLING HPI HPI 4month follow up: Details: 47 yr old f being seen for f/u RECAP: Had seen [facility] for GERD She had an EGD that revealed hemorrhagic erosive gastritis with a hiatal hernia and inflammation to the esophagus 2019 she had been given dexilant she is following up with urology in [place] for hematuria and kidney stones H pylori was negative last EGD 09/21 with small hernia, chronic esophagitis at GEJ and IEL in duodenum She was supposed to get egd and colonoscopy but this was r/s as she took coffee and crackers INTERIM: she stopped lansoprazole gave her heart palps, she thinsk pepcid in the past was way better she has choking if eats fast, and food can get stuck she denies nausea no diarrhea or constipation EXAM: GENERAL: The patient is well developed and nontoxic. VITAL SIGNS:see workflow HEENT: Nonicteric sclerae, PERRLA, EOMI. Oropharynx clear. Moist mucous membranes. Conjunctivae appear well perfused. No thyroid mass. CHEST: Chest wall is nontender. HEART: Regular rate and rhythm without murmurs. LUNGS: Clear to auscultation bilaterally. ABDOMEN: Soft, positive bowel sounds, nontender, no organomegaly.no flank tenderness SKIN: No rash, no excessive bruising, petechiae, or purpura. NEUROLOGIC: Cranial nerves II-XII intact without motor/sensory deficit. A/P: 1/ Hx of gastritis and GERD, h pylori negative --was off PPI, sx worse--she feels H2 blockers might be better 2/ colon screening PLAN: 1/ repeat EGD, to reassess gastritis and erosions as well as balloon dilation, 2/ colonoscopy with suprep --already has at home, colon screening -average risk [facility] Medical History History of Cano's palsy Renal and ureteric calculus Hematuria Gastritis Heartburn Gastric reflux Asthma Surgical History History of esophagogastroduodenoscopy (EGD) History of surgery Family History Maternal Uncle Colon cancer Social History Alcohol intake: never Patient Tobacco Use Status: Never used Tobacco Physical Exam Vital Signs: Last Vital Signs Pulse 82 12/24/23 09:06 BP 127/75 12/24/23 09:06 BMI result Body Mass Index 32.0 Assessment & Plan Assessment & Plan (1) Gastritis: Code(s): K29.70 - Gastritis, unspecified, without bleeding Category: Medical Plan: see above Coding Level of Care Code Est Pt Level 3 (84081) Diagnoses Gastritis K29.70
[2023-12-24 09:06] VITALS: BP 127/75; PULSE 82; BMI 32.0
== END 2023-12-24 09:48 | disposition home or self-care (01) ==
PROVIDERS: PCP Internal Medicine; Referring Provider Internal Medicine; Visit Provider Internal Medicine Gastroenterology
DX: K29.70 Gastritis, unspecified, without bleeding (principal)
CPT/HCPCS: 99213

== ENCOUNTER → 2023-12-24 08:57 | Outpatient (BNVA) | payer MEDICAID, SELFPAY | PROVIDERS: PCP Internal Medicine; Visit Provider Internal Medicine Gastroenterology | DX: K29.70 Gastritis, unspecified, without bleeding (principal) | CPT/HCPCS: 99212 ==

== ENCOUNTER 2024-02-01 08:31 | Outpatient (REF) | payer MEDICAID, SELFPAY ==
[2024-02-01 11:48] LABS: MANUAL DIFF FLAG NO
[2024-02-01 11:53] LABS: Basophils Percent Auto 0.7 % (0-2); Eosinophils Absolute Auto 0.2 X10*3/uL (0.0-0.4); Eosinophils Percent Auto 3.8 % (0-4); Hematocrit 41.4 % (37.0-47.0); Hemoglobin 13.1 g/dl (12.0-16.0); Imm Gran Abs Auto 0.02 X10*3/uL (0.00-0.03); Imm Gran Pct Auto 0.3 % (0.0-0.4); Lymphocytes Absolute Auto 2.5 X10*3/uL (1.2-4.9); Lymphocytes Percent Auto 41.4 % (20-40); Mean Corpuscular HGB Conc 31.6 g/dl (31.0-35.0); Mean Corpuscular Hemoglobin 28.9 pg (27.0-33.0); Mean Corpuscular Volume 91.2 fL (80.0-98.0); Mean Platelet Volume 11.1 fL (9.4-12.3); Monocytes Absolute Auto 0.6 X10*3/uL (0.1-1.2); Monocytes Percent Auto 9.3 % (2-11); Neutrophils Absolute Auto 2.7 x10*3/uL (2.0-8.3); Neutrophils Percent Auto 44.5 % (45-73); Platelet Count 248 X10*3/uL (160-400); Red Blood Count 4.54 X10*6/uL (4.20-5.50); Red Cell Distribution Width 11.7 % (11.0-16.0)
[2024-02-01 12:39] LABS: Alanine Aminotransferase 42 U/L (0-31); Alkaline Phosphatase 57 U/L (39-117); Anion Gap 11 (12-20); Aspartate Amino Transferase 34 U/L (5-31); Bilirubin Total 0.4 mg/dL (0.0-1.0); Blood Urea Nitrogen 9 mg/dL (9-16); Carbon Dioxide 23 mmol/L (22-29); Chloride 108 mmol/L (96-108); Cholesterol 190 mg/dL (<200); Estimated Glomerular Filt Rate > 60; Glucose Random 118 mg/dL (60-115); HDL Cholesterol 49 mg/dL (>40); LDL Cholesterol Calculated 121 mg/dL (<100); Potassium 3.9 mmol/L (3.3-5.1); Sodium 138 mmol/L (135-145); Total Protein 6.7 g/dL (6.5-8.0); Triglycerides 100 mg/dL (<150)
[2024-02-01 12:46] LABS: Appearance Urine Clear; Color Urine Yellow; Glucose Urine UA Negative (Negative); Leukocyte Esterase Urine Negative (Negative); Nitrite Urine Negative (Negative); PH 5.5 (5.0-9.0); Specific Gravity - Urine 1.025 (1.005-1.025); Urine Blood Negative (Negative); Urine Ketones Negative (Negative); Urine Protein Negative (Neg-Trace)
== END 2024-02-01 08:32 | disposition home or self-care (01) ==
LOC: HO.CHCLDS 08:31
PROVIDERS: Visit Provider Internal Medicine
DX: E11.9 Type 2 diabetes mellitus without complications (principal)
CPT/HCPCS: 36415; 80053; 80061; 81003; 84443; 85025

== ENCOUNTER 2024-03-29 09:57 | Day surgery (SDC) | payer MEDICAID, SELFPAY ==
[2023-11-29 11:21] VITALS: BMI 31.5
--- NOTE | 2023-11-30 10:43 | P.CONAN_ITS ---
HPI - Anesthesia Eval Consult details Narrative: 47yo F for Upper Endoscopy and Colonoscopy [facility] Active Problems Active Problems: All Active Problems (Updated 10/27/22 @ 00:00 by Gurmeet Dang) Malnutrition (Acute) Gastritis (Acute) Renal and ureteric calculus (Acute) Hematuria (Acute) Past Medical History Medical History History of Cano's palsy Renal and ureteric calculus Hematuria Gastritis Heartburn Gastric reflux Asthma Family History Family History (Updated 07/30/23 @ 09:58 by NICOLA Vuong) Maternal Uncle Colon cancer Family history of problems with anesthesia: No Surgical History Surgical History History of esophagogastroduodenoscopy (EGD) History of surgery History of Problems with Anesthesia: Yes (PONV. Usually needs albuterol inhaler after procedures) Social History Social History Alcohol intake: never Patient Tobacco Use Status: Never used Tobacco Meds Allergies Allergy/AdvReac Type Severity Reaction Status Date / Time shellfish derived Allergy Mild unknown Verified 07/30/23 09:52 acetaminophen [From PERCOCET] Allergy Unknown RASH/ITCHIN Verified 07/30/23 09:52 ESS oxycodone [From PERCOCET] Allergy Unknown RASH/ITCHIN Verified 07/30/23 09:52 ESS shrimp [SHRIMP] Allergy Unknown SWELLING Verified 07/30/23 09:52 Home Medications Medication Instructions Recorded Confirmed Last Taken Type albuterol sulfate 90 mcg/actuation 2 puff inhalation Q4-6H PRN 09/09/22 09/09/22 Unknown History aerosol inhaler (ProAir HFA) Wheezing cetirizine 10 mg tablet 1 tab PO DAILY 09/09/22 09/09/22 Unknown History ibuprofen 800 mg tablet 800 mg PO Q8H PRN 07/30/23 Unknown History ketorolac 10 mg tablet 10 mg PO TID PRN pain 07/30/23 Unknown History Exam Height,Weight and Vital Signs: Height 5 ft 3 in Weight 80.739 kg Assessment and Plan Assessment Anesthesia Assessment: Chart Reviewed Final Anesthetic Review Family History of Problems with Anesthesia: No History of Problems with Anesthesia: Yes (PONV. Usually needs albuterol inhaler after procedures)
--- NOTE | 2024-03-27 14:59 | HO.ANESPROP2 ---
Documented by User: Laina Pacheco NP 03/27/24 14:59 HPI - Anesthesia Eval Consult details Narrative: 48yo F for Upper Endoscopy and Colonoscopy PMF Active Problems Active Problems: All Active Problems Malnutrition (Acute) Gastritis (Acute) Renal and ureteric calculus (Acute) Hematuria (Acute) Past Medical History Medical History History of Cano's palsy Renal and ureteric calculus Hematuria Gastritis Heartburn Gastric reflux Asthma Family History Family History Maternal Uncle Colon cancer Family history of problems with anesthesia: No Surgical History Surgical History History of esophagogastroduodenoscopy (EGD) History of surgery History of Problems with Anesthesia: Yes Social History Social History Alcohol intake: never Patient Tobacco Use Status: Never used Tobacco Are you DNR?: No Advance Directives: No Advance Directives Information Provided: Yes Patient : No (Hysterectomy) Meds Allergies Allergy/AdvReac Type Severity Reaction Status Date / Time shellfish derived Allergy Mild unknown Verified 12/24/23 09:06 acetaminophen [From PERCOCET] Allergy Unknown RASH/ITCHIN Verified 12/24/23 09:06 ESS oxycodone [From PERCOCET] Allergy Unknown RASH/ITCHIN Verified 12/24/23 09:06 ESS shrimp [SHRIMP] Allergy Unknown SWELLING Verified 12/24/23 09:06 Home Medications ?Medication ?Instructions ?Recorded ?Confirmed ?Last Taken ?Type albuterol sulfate 90 mcg/actuation 2 puff inhalation Q4-6H PRN 09/09/22 09/09/22 Unknown History aerosol inhaler (ProAir HFA) Wheezing cetirizine 10 mg tablet 1 tab PO DAILY 09/09/22 09/09/22 Unknown History ibuprofen 800 mg tablet 800 mg PO Q8H PRN 07/30/23 Unknown History ketorolac 10 mg tablet 10 mg PO TID PRN pain 07/30/23 Unknown History cholecalciferol (vitamin D3) 25 25 mcg PO QAM 12/24/23 Unknown History mcg (1,000 unit) capsule (Vitamin D3) Exam Height,Weight and Vital Signs: Height 5 ft 3 in Weight 80.739 kg Assessment and Plan Assessment Anesthesia Assessment: Chart Reviewed Final Anesthetic Review Family History of Problems with Anesthesia: No History of Problems with Anesthesia: Yes Documented by User: Andra Epstein MD 03/29/24 12:17 PMFSH Past Medical History Medical History History of Cano's palsy Renal and ureteric calculus Hematuria Gastritis Heartburn Gastric reflux Asthma Family History Family History Maternal Uncle Colon cancer Surgical History Surgical History History of esophagogastroduodenoscopy (EGD) History of surgery Social History Social History Alcohol intake: never Patient Tobacco Use Status: Never used Tobacco Are you DNR?: No Advance Directives: No Advance Directives Information Provided: Yes Patient : No (Hysterectomy) Meds Allergies Allergy/AdvReac Type Severity Reaction Status Date / Time shellfish derived Allergy Mild unknown Verified 12/24/23 09:06 acetaminophen [From PERCOCET] Allergy Unknown RASH/ITCHIN Verified 12/24/23 09:06 ESS oxycodone [From PERCOCET] Allergy Unknown RASH/ITCHIN Verified 12/24/23 09:06 ESS shrimp [SHRIMP] Allergy Unknown SWELLING Verified 12/24/23 09:06 Home Medications ?Medication ?Instructions ?Recorded ?Confirmed ?Last Taken ?Type albuterol sulfate 90 mcg/actuation 2 puff inhalation Q4-6H PRN 09/09/22 09/09/22 Unknown History aerosol inhaler (ProAir HFA) Wheezing cetirizine 10 mg tablet 1 tab PO DAILY 09/09/22 09/09/22 Unknown History ibuprofen 800 mg tablet 800 mg PO Q8H PRN 07/30/23 Unknown History ketorolac 10 mg tablet 10 mg PO TID PRN pain 07/30/23 Unknown History cholecalciferol (vitamin D3) 25 25 mcg PO QAM 12/24/23 Unknown History mcg (1,000 unit) capsule (Vitamin D3) Exam Airway Mallampati Class: II TM Dist: >3cm Neck ROM: Full Heart: rrr Lungs: cta Assessment and Plan Assessment Anesthesia Assessment: Anesthesia Plan Discussed Final Anesthetic Review NPO: Yes ASA Class: II Final Preanesthetic Review: No Changes in Pt Med Stat, Meds/Allgs Chart Reviewed, Consent Obtained/Reviewed and Anes Risks/Benef Reviewed Patient Risk: Intermediate Procedure Risk: Low Anesthetic Plan Anesthetic Plan: MAC: Disposition: Standard PACU
[2024-03-29 10:52] VITALS: BMI 30.8
[2024-03-29 11:14] VITALS: BP 132/89; PULSE 96; RESP 18; TEMP 36.3; O2SAT 98
[2024-03-29] MEDS: Lactated Ringers 1,000 ML 100 ML IVCONT (11:26)
--- NOTE | 2024-03-29 11:41 | PC.NURSE ---
Diet controlled diabetic
--- NOTE | 2024-03-29 12:07 | MHC.SHP ---
Pre-Procedural Eval Section A - 24 Hr Update-Section A only Date of Service: 03/29/24 Section B - Complete if H&P > 30 days Chief Complaint: Gastritis,screening,gerd, Relevant Family History (Specify if Yes): No Relevant Social History: None Present Medications: see Short Stay Collaborative assessment Medical History: Significant History (History of Cano's palsy Renal and ureteric calculus Hematuria Gastritis Heartburn Gastric reflux Asthma) History of Previous Operations: Relevant previous surgery/procedure and date(s) (History of esophagogastroduodenoscopy (EGD) History of surgery) Allergies: Allergies Allergy/AdvReac Type Severity Reaction Status Date / Time shellfish derived Allergy Mild unknown Verified 12/24/23 09:06 acetaminophen [From PERCOCET] Allergy Unknown RASH/ITCHIN Verified 12/24/23 09:06 ESS oxycodone [From PERCOCET] Allergy Unknown RASH/ITCHIN Verified 12/24/23 09:06 ESS shrimp [SHRIMP] Allergy Unknown SWELLING Verified 12/24/23 09:06 Review of Systems Sugical H&P ROS: Negative: Constitution, Cardiovascular, Respiratory, Neurological, Psychiatric, Hem-Onc, Allergic/Immunologic, Gastrointestinal, Genitourinary, Musculoskeletal, Integumentary, Endocrine and Eyes/Ears/Nose/Throat Exam Surgical H&P Exam: Normal: HEENT, Normal: Heart, Normal: Lungs, Normal: Extremities, Normal: Abdomen, Normal: Skin and Normal: Neurological Plan Diagnosis/Plan: Unchanged I have reviewed the history and physical and performed a pertinent physical examination on my patient. No changes have occurred unless specified. Time Spent With Patient Time: Total time managing care of this patient today ____ minutes.
--- NOTE | 2024-03-29 13:00 | HO.OPN-COLON ---
Colonoscopy Operative Note Operative Note Date of Service: 03/29/24 Narrative: Operative Information Procedure Description: EGD, Colonoscopy Indication: GERd, dysphagia, and screening Anesthesia: MAC FLEXIBLE TRANSORAL UPPER GASTROINTESTINAL ENDOSCOPY AND COLONOSCOPY PROCEDURE NOTE UPPER ENDOSCOPY Consent: Indications for the procedure and potential complications of bleeding, perforation, reaction to medications and missed diagnosis were discussed with the patient and informed consent was obtained. Instrument: Olympus GIF H 190 J mid size upper endoscope Monitoring: Vital signs and clinical assessment, continuous EKG monitoring, Pulse oximetry, Carbon Dioxide monitoring and blood pressure monitoring were done throughout the procedure. Procedure: The patient was placed in the left lateral decubitis position and pre-procedure medications were administered and a bite block was placed. The endoscope was inserted into the mouth and advanced under direct vision to the third part of duodenum. A careful inspection was made as the upper endoscope was withdrawn including a retroflexed examination of the proximal stomach; Findings and interventions are described below. Findings: Larynx:normal Esophagus: GE junction at 35 cm, diaphragm hiatus at 37 cm, consistent with 2 cm sliding hiatal hernia, schatzki ring noted, with LA grade A erosive esophagitis, balloon dilation done to 19 mm at LES and UES Stomach: Patchy gastric erythema. Biopsies were obtained. Grade 2 flap valve on retroflexed examination of the cardia. Duodenum: duodenitis noted, Intervention: Biopsies as noted above COLONOSCOPY Instrument: Olympus variable stiffness pediatric scope 190L Colonoscopy Monitoring: Vital signs and clinical assessment, continuous EKG monitoring, Pulse oximetry, Carbon Dioxide monitoring and blood pressure monitoring were done throughout the procedure. Colon withdrawal time was 10 minutes. Procedure: The patient was placed in the left lateral decubitis position and pre-procedure medications were administered. After a digital rectal examination of the ano-rectum, the video colonoscope was inserted into the rectum and advanced through the colon to the cecum/TI. The colonoscope was slowly withdrawn in a retrograde panoramic fashion and the colon mucosa was carefully examined including a retroflexed view of the rectum. Findings and interventions are described below. Procedure Difficulty:moderate Findings: Terminal Ileum-normal Cecum: one prominent fold over appendiceal fold, pinch bx taken Ascending Colon: normal Transverse Colon -normal Descending Colon:normal Sigmoid Colon: normal Rectum: Retroflexion with small internal hemorrhoids, grade I, 4-5 mm sessile polyp removed with cold forceps Anorectum - normal Colon preparation: Meh[place] Bowel Preparation Scale Right colon; 2 Transverse colon: 2 Left colon; 2 (0 = Unprepared colon segment with mucosa not seen due to solid stool that cannot be cleared. 1 = Portion of mucosa of the colon segment seen, but other areas of the colon segment not well seen due to staining, residual stool and/or opaque liquid. 2 = Minor amount of residual staining, small fragments of stool and/or opaque liquid, but mucosa of colon segment seen well. 3 = Entire mucosa of colon segment seen well with no residual staining, small fragments of stool or opaque liquid) Impression and Post Procedure Diagnosis: Endoscopy Findings: erosive esophagitis hiatal hernia schatzki ring gastritis duodenitis Colonoscopy Findings: colon polyp internal hemorrhoid Plan: Await Pathology results Repeat Colonoscopy in 5-7 years if adenomatous or earlier if clinically indicated High fiber diet leaflet avoid straining at stool, epsom salts and sitz bath, anusol supps or cream check PPi compliance Above findings were reviewed with the patient and relevant handouts were provided if indicated.
[2024-03-29 13:04] VITALS: BP 109/79; PULSE 103; RESP 16; TEMP 36.1; O2SAT 98
[2024-03-29 13:19] VITALS: BP 118/81; PULSE 103; RESP 18; O2SAT 98
[2024-03-29] MEDS: Acetaminophen 325 MG TABLET 975 MG PO (13:25)
[2024-03-29 13:34] VITALS: BP 127/89; PULSE 105; RESP 18; TEMP 36.2; O2SAT 98
== END 2024-03-29 14:49 | disposition home or self-care (01) ==
PROVIDERS: PCP Internal Medicine; Visit Provider Internal Medicine Gastroenterology
PROC: (CPT 45380; principal; 2024-03-29 11:50)
DX: Z12.11 Encounter for screening for malignant neoplasm of colon (principal); K62.1 Rectal polyp; K63.89 Other specified diseases of intestine; K57.30 Diverticulosis of large intestine without perforation or abscess without bleeding; K64.0 First degree hemorrhoids; R13.10 Dysphagia, unspecified; K22.0 Achalasia of cardia; K21.9 Gastro-esophageal reflux disease without esophagitis; K22.2 Esophageal obstruction; K29.70 Gastritis, unspecified, without bleeding; K29.80 Duodenitis without bleeding; K44.9 Diaphragmatic hernia without obstruction or gangrene; J45.909 Unspecified asthma, uncomplicated; E11.9 Type 2 diabetes mellitus without complications; N20.0 Calculus of kidney; R31.9 Hematuria, unspecified; Z79.899 Other long term (current) drug therapy; Z88.5 Allergy status to narcotic agent
CPT/HCPCS: 45380; 43249; 43239; 88305; 88342; C1726; J1596; J2704

== ENCOUNTER → 2024-03-29 09:57 | Outpatient (BNV) | payer MEDICAID, SELFPAY | PROVIDERS: PCP Internal Medicine; Visit Provider Internal Medicine Gastroenterology | DX: Z12.11 Encounter for screening for malignant neoplasm of colon (principal); K62.1 Rectal polyp; K57.90 Diverticulosis of intestine, part unspecified, without perforation or abscess without bleeding; K64.0 First degree hemorrhoids; K21.00 Gastro-esophageal reflux disease with esophagitis, without bleeding; K22.2 Esophageal obstruction; R13.10 Dysphagia, unspecified; K29.80 Duodenitis without bleeding | CPT/HCPCS: 43239; 43249; 45380 ==

== ENCOUNTER 2024-09-15 10:21 | Outpatient (REF) | payer MEDICAID, SELFPAY ==
--- NOTE | ~2024-09-15 | XR_ITS ---
EXAMINATION: XR PELVIS CLINICAL INFORMATION: BENIGN NEOPLASM OF BONE COMPARISON: MRI right hip 09/18/2021. TECHNIQUE: AP view of the pelvis. FINDINGS: There is normal symmetry of bilateral hip joints and SI joints. No visible acute fracture, dislocation or subluxation seen. Again visualizes a well corticated thick-walled almost rectangular-appearing lesion in the right proximal femur similar in size to previous MRI 09/18/2021. This appears benign as was noted on the previous MRI. Rest of the visualized bones are grossly unremarkable. The soft tissues are normal. XR/XR pelvis 1-2V IMPRESSION: No visible acute fracture, dislocation or subluxation. Known sclerotic well-defined lesion right proximal femur, stable to previous MRI 09/18/2021. Electronically signed by: Oscar Estrada MD 09/19/2024 08:58 AM [facility]
--- NOTE | ~2024-09-15 | XR_ITS ---
EXAMINATION: XR HIP, RIGHT CLINICAL INFORMATION: PAIN COMPARISON: MRI hip 09/26/2021. TECHNIQUE: Two views of the right hip. FINDINGS: No fracture. Alignment is anatomic. Hip joint space is maintained. Soft tissues are unremarkable. There is a known lesion with sclerotic thick-walled margins in proximal femur. XR/XR hip RT min 2V IMPRESSION: Normal right hip except for known stable lesion right proximal femur compared to MRI 01/16/2017. Electronically signed by: Oscar Estrada MD 09/19/2024 09:02 AM [facility] [place]
== END 2024-09-15 10:22 | disposition home or self-care (01) ==
LOC: HO.HHCX 10:21
PROVIDERS: Visit Provider Registered Nurse
DX: D16.9 Benign neoplasm of bone and articular cartilage, unspecified (principal)
CPT/HCPCS: 72170; 73502

== ENCOUNTER → 2024-09-15 11:00 | Outpatient (BNV) | payer MEDICAID, SELFPAY | PROVIDERS: Visit Provider Radiology Diagnostic Radiology | DX: M25.551 Pain in right hip (principal); D16.9 Benign neoplasm of bone and articular cartilage, unspecified | CPT/HCPCS: 72170; 73502 ==

== ENCOUNTER 2024-12-04 08:45 | Outpatient (REF) | payer MEDICAID, SELFPAY ==
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
--- OUTSIDE RECORDS SUMMARY | 2024-12-04 09:28 | XMS_ITS | Clinical Summary ---
Author Organization [employer] Address [address] [place] [address] 7[address] [place] [address] Care Team Providers Care Greenhouse Laborer Name Role Phone Ba Gan MD Primary Care Prov ider Allergies Active Allergy Reactions Criticality Noted Date Comments Acetaminophen 07/20/2022 Oxycodone 07/20/2022 Oxycodone-Acetaminophen Hives,Swelling High 10/17/19 Shellfish Allergy 01/01/2022 Shellfish-Derived Products Hives,Swelling High 10/17 Shrimp (Diagnostic) 01/01/2022 Medications Elastic Bandages & Supports (Wrist Splint) [facility] [place] splint at night 0 Active famotidine (Pepcid) 20 MG tablet Take 1 tablet by mouth every 12 (twelve) hours. 2 Active montelukast (Singulair) 10 MG tablet Take 1 tablet by mouth in the morning. 2 Active sodium chloride (Tipton) 0.65 % nasal spray 1-2 sprays. 2 Active sennosides (Senokot) 8.6 MG tablet Take 2 tablets by mouth in the morning. 2 Active SUMAtriptan (Imitrex) 25 MG tablet Take 1 tablet by mouth if needed each day. 2 Active Necon 0.5/35, 28, 0.5-35 MG-MCG tablet Take 1 tablet by mouth in the morning. 2 Active cyclobenzaprin e (Flexeril) 10 MG tabletIndicati ons:Acute left flank pain One tab po prn pain of muscles TID 30 tablet 3 Active valACYclovir (Valtrex) 1 g tabletIndicati ons:Acute left flank pain TAKE 1 TABLET BY MOUTH 3 TIMES A DAY FOR 7 DAYS IF A RASH OCCURS 21 tablet 3 Active ibuprofen 600 MG tabletIndicati ons:Acute left flank pain TAKE 1 TABLET BY MOUTH EVERY 8 HOURS IF NEEDED FOR PAIN OR INFLAMMATIO N. 90 tablet 5 Active albuterol (Ventolin HFA) 108 (90 Base) MCG/ACT inhaler INHALE 2 PUFFS EVERY 4 TO 6 HOURS IF NEEDED 18 g 11 5 Active cetirizine (ZyrTEC) 10 MG tablet TAKE 1 TABLET BY MOUTH EVERY DAY 90 tablet 5 Active cholecalcifero l (Vitamin D3) 25 MCG (1000 UT) tablet TAKE 1 TABLET BY MOUTH EVERY DAY IN THE MORNING 90 tablet 3 5 Active cetirizine (ZyrTEC) 10 MG tablet TAKE 1 TABLET BY MOUTH EVERY DAY 90 tablet 5 11/28/19 25 Discontinued cholecalcifero l (Vitamin D-3) 25 MCG (1000 UT) capsule TAKE 1 CAPSULE BY MOUTH EVERY MORNING 90 capsule 5 11/28/19 25 Discontinued Active Problems Problem Noted Date Diagnosed Date Skin tag 12/10/2023 Assessment & Plan (12/10/2023 12:49 AM EDT): Patient will be referred to dermatology, wants to be seen at [facility] Fax number [phone]. Bilateral hand pain 08/14/2023 Assessment & Plan (08/14/2023 12:12 PM EST): Will order bilateral hand EMG, for possible carpal tunnel, Diabetes due to undrl condition w oth diabetic n euro comp 04/15/2023 Assessment & Plan (01/31/2024 12:19 PM EDT): A1c 6.5%, not interested in medical therapy, continue diet and exercise as tolerated, follow up in 6 months risk were discussed Eye exam done last year Foot exam done today was unremarkable Assessment & Plan (09/01/2023 12:36 PM EST): Told patient to get blood work done for follow up, she refers not adhering to diet Type 2 diabetes mellitus wit hout complication, without long-term current use of insulin 01/21/2023 Assessment & Plan (08/14/2023 12:07 PM EST): A1c from december was 6.5% patient preferred adhering to diet, exercise/lifestyle modifications, will follow up with new labs and a1c Assessment & Plan (01/21/2023 1:54 PM EDT): Patient was found with a1c of 6.5%. Discussed with patient blood work results, risk vs benefits of treatment. Patient prefers to perform diet for now, decrease carbohydrates avoid sugars, will follow up in 3 months. CARRILLO (nonalcoholic steatohepatitis) 01/21/2023 Assessment & Plan (08/14/2023 12:10 PM EST): Lifestyle modifications, weight loss and diet to be continued, will follow up with new labs in 3-4 months Assessment & Plan (01/21/2023 1:55 PM EDT): Discussed results, she has evidence from previous u/s where she has steatohepatitis, weight loss, diet, exercise reinforced. Screening for colon cancer 12/07/2022 Assessment & Plan (12/10/2023 12:47 AM EDT): Will refer for screening colon cancer Vitamin D deficiency 12/07/2022 Seasonal allergies 12/07/2022 Assessment & Plan (12/07/2022 3:55 PM EDT): Controlled, no changes will be made, avoid prolonged exposure to dust and pollen Mild intermittent asthma without complication Assessment & Plan (01/31/2024 12:17 PM EDT): No recent exacerbation, no changes will be made Assessment & Plan (09/01/2023 12:36 PM EST): Controlled on albuterol as needed, no recent ER visit due to exacerbation Lichen sclerosus 05/28/2022 Overview (09/01/2022): Last Assessment & Plan: Reviewed findings with patient. Well controlled. I explained that she may see some lessening of hypopigmentation, but less likely that it will resolve. As long as her sx have gone into remission and her skin appears otherwise healthy, no need to worry. I reviewed the importance of regular maintenance topical steroid use to prevent symptoms, further scarring, and squamous cell cancer of the vulva. I also explained the importance of regular follow up to ensure she has no evidence of precancerous or cancerous changes and that she is not having side effects from her medication. I reviewed areas of application and amount of medication to use. She will continue nightly Mycolog. Rx refilled. Gastroesophageal reflux disease without esophagi tis 01/11/2019 Assessment & Plan (08/14/2023 12:11 PM EST): Followed by Gi, continue famotidine as needed Assessment & Plan (12/07/2022 3:53 PM EDT): On famotidine, continue diet/lifestyle modification, underwent upper endoscopy by GI History of hysterectomy for benign disease 01/11 Encounters Date Type Department Care Team Description 12/01/2024 Orders Only [facility] [address] [place] [address] Ba Gan MD Type 2 diabetes mellitus without complication, without long-term current use of insulin ([facility]) (Primary Dx) 11/30/2024 Telephone [facility] [address] [place] [address] Ba Gan MD Lab Orders; Medication Question 11/27/2024 Refill [facility] [address], [place] [phone] Ml Mitchell MD 11/10/2024 Population Health Risk Score Community [facility] ([facility]) [address] [phone] Provider, Population Health Generic 09/23/2024 Refill [facility] [address] [place] [address] Ml Mitchell MD 09/21/2024 Telephone [facility] [address] [place] [address] Ba Gan MD 09/15/2024 Orders Only [facility] [address] [place] [address] Elly Villagomez, [employer] Benign neoplasm of bone, unspecified bone 09/13/2024 11:00 AM EST Office Visit [facility] [address], [place] [phone] Elly Villagomez, [employer] Greater trochanteric pain syndrome of both lower extremities (Primary Dx); Plantar fasciitis of right foot; Benign neoplasm of bone, unspecified bone 09/13/2024 Telephone [facility] [address] [place] [address] Ba Gan MD 09/13/2024 Travel 09/12/2024 Telephone [facility] [address], [place] [phone] Ba Gan MD Nurse Triage from Last 3 Months Immunizations Name Administration Dates Next Due Hep B, adult 01/11/2019,08/03/2018,02/24/2018 Influenza injectable quadriv alent IIV4 with preservative 08/03/2018 Influenza injectable quadriv alent preservative free 08/01/2021,06/26/2020,06/07/2017 Influenza, IIV3, injectable 07/13/2014, 3 Influenza, Unspecified 07/14/2012,06/25/2011 Influenza, seasonal, injecta ble, preservative free 05/24/2024 Moderna Covid-19 Vaccine 12+ 12/21/2020,11/24/19 21 Tdap 07/14/2012 Social History Tobacco Use Types Packs/Day Years Used Date Smoking Tobacco: Never Smokeless Tobacco: Never Tobacco Cessation:Counseling Given: Not Answered Alcohol Use Standard Drinks/Week Comments Never 0 (1 standard drink = 0.6 oz pur e alcohol) Depression Answer Date Recorded Patient Health Questionnaire-9 Score 5 01/31/2024 Patient Health Questionnaire-9 Score 5 01/31/2024 Last PHQ-9: Questionnaire Data Not on file 0 01/31/2024 Housing Stability Answer Date Recorded What is your housing situation today? I have dolores diallo 01/21/[address] you li ve. Do you have problems with any of the following? Pests such as bugs, ants, or mice 01/21/2024 Food Insecurity Answer Date Recorded Within the past 12 months, y ou worried that your food would run out before you got money to buy more: Never True 01/21/2024 Within the past 12 months,th e food you bought just didn't last and you didn't have enough money to get more: Never True Transportation Answer Date Recorded In the past 12 months, has l ack of transportation kept you from medical appts, meetings, work or from getting things needed for daily living? No 01/21/2024 Utilities Answer Date Recorded In the past 12 months, has t he electric, gas, oil or water company threatened to shut off services in your home? No 01/21/2024 Depression Answer Date Recorded Patient Health Questionnaire-2 Score 2 01/31/2024 Comments Unknown Sex and Gender Information Value Date Recorded Sex Assigned at Female 06/29/2022 10:30 AM EDT Legal Sex Female 10:30 AM EDT Gender Identity Female 06/29/2022 10:30 AM EDT Sexual Orientation Straight 06/29/2022 10 :30 AM EDT Last Filed Vital Signs Vital Sign Reading Time Taken Comments Blood Pressure 118/78 09/13/2024 11:06 AM EST Pulse 82 09/13/2024 11:06 AM EST Temperature 36.4 ??C (97.6 ??F) 09/13/2024 11:[address] Respiratory Rate 20 09/13/2024 11:06 AM EST Oxygen Saturation 98% 09/13/2024 11:06 AM EST Inhaled Oxygen Concentration - - Weight 83.3 kg (183 lb 9.6 oz) 09/13/2024 11:06 AM EST Height 159 cm (5' 2.6 ) 09/13/2024 11:06 AM EST Body Mass Index 32.94 09/13/2024 11:06 AM EST Plan of Treatment Health Maintenance Due Date Last Done Comments CT Colonography 1977 FIT DNA/Cologuard 1977 FIT 1977 FOBT 1975 Sigmoidoscopy 1975 Eye Exam 12/20/1987 Family Planning (PISQ) 1992 Hepatitis A Vaccines (1 of 2 - Risk 2-dose series) 1996 Pneumococcal Vaccine: Pediatrics (0 to 5 Years) and At-Risk Patients (6 to 49) Years) (1 of 2 - PCV) 1996 DTaP/Tdap/Td Vaccines (2 - Td or Tdap) 07/14/2022 07/14/2012 COVID-19 Vaccine ( season) 2024 12/21/2020, 11/23/2020 Diabetes: Hemoglobin A1C 08/01/2024 024, 09/03/2023, 12/30/2022, Additional history exists Diabetes: Urine Protein Screening 09/03/2024 09/03/2023 SDOH Screening 01/20/2025 01/21/2024 Alcohol/Substance Use Screening 01/30/2025 01/31/2024 Depression Screening 01/30/2025 01/31/2024, 01/31/20 Diabetes: Foot Exam 01/30/2025 01/31/2024, 01/31/2024, 01/31/2024, Additional history exists Lipid Panel 01/31/2025 02/01/2024, 12/30/2022 Tobacco Screening 09/13/2025 09/13/2024 Mammogram 05/22/2026 05/22/2024, 10/0 04/2023, 01/08/2020, Additional history exists Zoster Vaccines (1 of 2) 12/20/2027 Colonoscopy 03/29/2029 03/29/2024 Colorectal Cancer Screening 03/29/2029 RSV Patients and Patients Aged 60 years or older (1 - 1-dose 75+ series) 2052 Hepatitis B Vaccines Completed 01/11/2019, 08/03/2018, 02/24/2018 HIV Screening Completed 11/18/2021, 10/29, 06/14/2020, Additional history exists Hepatitis C Screening Completed 11/18/2021, 020 Influenza Vaccine Completed 05/24/2024, , 06/26/2020, Additional history exists HIB Vaccines Aged Out No longer eligi ble based on patient's age to complete this topic HPV Vaccines Aged Out No longer eligi ble based on patient's age to complete this topic IPV Vaccines Aged Out No longer eligi ble based on patient's age to complete this topic Meningococcal Vaccine Aged Out No jagdeep araceli eligible based on patient's age to complete this topic RSV under 20 months Aged Out No longe r eligible based on patient's age to complete this topic Rotavirus Vaccines Aged Out No longer eligible based on patient's age to complete this topic Procedures Procedure Name Priority Date/Time Associated Diagnosis Comments AMB REFERRAL TO ORTHOPAEDIC SURGERY Routine 11/06/2024 Benign neoplasm of bone, unspecified bone XR PELVIS 1-2 VIEWS Routine 09/15/2024 1 1:00 AM EST Benign neoplasm of bone, unspecified bone XR HIP 2 OR 3 VIEWS RIGHT Routine 09/15/2024 10:23 AM EST Benign neoplasm of bone, unspecified bone BI MAMMOGRAM SCREENING BILATERAL Routine 05/22/2024 Encounter for screening mammogram for malignant neoplasm of breast HM COLONOSCOPY Routine 03/29/2024 LIPID PANEL, STANDARD Routine 02/01/2024 8:33 AM EDT Type 2 diabetes mellitus without complication, without long-term current use of insulin (CMS/HCC) POCT GLYCATED HEMOGLOBIN, TOTAL Routine 01/31/2024 9:31 AM EDT Type 2 diabetes mellitus without complication, without long-term current use of insulin (CMS/HCC) ALBUMIN, RANDOM URINE W/CREATININE Routine 09/03/2023 11:20 AM EST ZZZ HISTORICAL HEPATITIS C AB W/REFL TO HCV RNA, QN, PCR Routine 11/18/2021 1:03 PM EDT HIV 1/2 ANTIGEN/ANTIBODY, FOURTH GENERATION W/RFL Routine 11/18/2021 12:09 PM EDT from Last 3 Months or Most Recently Relevant to Health Maintenance Results * Referral to Orthopaedic Surgery (11/06/2024) [facility] [employer] OUTPATIENT REFERRAL ORDERABLE S Final Result * XR Pelvis 1-2 Views (09/15/2024 11:00 AM EST) Anatomical Region Laterality Modality Body, Pelvis Radiographic Rosa ging 09/15/2024 11:0 0 AM EST Narrative 09/19/2024 9:01 AM EST ?[facility] ?[address] ?[place] [address] ?XRay Report ? Signed ? Patient: Velazquez,No ?MR#: [id number] ?? [id number] ? : 1975 ?Acct:[id number] ? Age/Sex: 48 / F ?ADM Date: 09/15/24 ? Loc: HO.HHCX ? Attending Dr: Elly Villagomez [employer] ? Ordering Physician: Elly Villagomez [employer] ?? Date of Service: 09/15/24 ?? Procedure(s): XR pelvis 1-2V ?? Accession Number(s): [id number] ? cc: Elly Villagomez [employer] ? EXAMINATION: ?? XR PELVIS ? CLINICAL INFORMATION: ?? BENIGN NEOPLASM OF BONE ? COMPARISON: ?? MRI right hip 09/18/2021. ? TECHNIQUE: ?? AP view of the pelvis. ? FINDINGS: ?? There is normal symmetry of bilateral hip joints and SI joints. No ?? visible acute fracture, dislocation or subluxation seen. ??Again ?? visualizes a well corticated thick-walled almost rectangular-appearing ?? lesion in the right proximal femur similar in size to previous MRI ?? 09/18/2021. This appears benign as was noted on the previous MRI. Rest ?? of the visualized bones are grossly unremarkable. The soft tissues are ?? normal. ? XR/XR pelvis 1-2V ?? IMPRESSION: ?? No visible acute fracture, dislocation or subluxation. ? Known sclerotic well-defined lesion right proximal femur, stable to ?? previous MRI 09/18/2021. ? Electronically signed by: ??Oscar Estrada MD ??09/19/2024 08:58 AM EST RP ? Dictated By: ?Oscar Estrada MD ? Signed By: ?<Electronically signed by Oscar Estrada MD in OV> ?09/19/24 0858 ? DD/ 1100 ? TD/TT: 09/15/24 1104 ? Carnival Worker: MSM ? Procedure Note Elisabethter, Image - 09/19/[address] [address] XRay Report Signed Patient: No VelazquezMR#: [id number] : 1975Acct:[id number] Age/Sex: 48 / FADM Date: 09/15/24 Loc: HO.HHCX Attending Dr: Elly Villagomez [employer] Ordering Physician: Elly Villagomez Date of Service: 09/15/24 Procedure(s): XR pelvis 1-2V Accession Number(s): [id number] cc: Elly Villagomez [facility] EXAMINATION: XR PELVIS CLINICAL INFORMATION: BENIGN NEOPLASM OF BONE COMPARISON: MRI right hip 09/18/2021. TECHNIQUE: AP view of the pelvis. FINDINGS: There is normal symmetry of bilateral hip joints and SI joints. No visible acute fracture, dislocation or subluxation seen. Again visualizes a well corticated thick-walled almost rectangular-appearing lesion in the right proximal femur similar in size to previous MRI 09/18/2021. This appears benign as was noted on the previous MRI. Rest of the visualized bones are grossly unremarkable. The soft tissues are normal. XR/XR pelvis 1-2V IMPRESSION: No visible acute fracture, dislocation or subluxation. Known sclerotic well-defined lesion right proximal femur, stable to previous MRI 09/18/2021. Electronically signed by: Oscar Estrada MD 09/19/2024 08:58 AM EST Dictated By: Oscar Estrada MD Signed By: <Electronically signed by Oscar Estrada MD in OV> 09/19/24 0858 DD/ 1100 TD/TT: 09/15/24 1104 Carnival Worker: ANNE [facility] [employer] IMG XR PROCEDURES Edited Resu lt - Final * XR Hip 2 or 3 Views Right (09/15/2024 10:23 AM EST) Anatomical Region Laterality Modality Lower Extremities, Hip Right Radiograp hic Imaging 09/15/2024 10:2 3 AM EST Narrative 09/19/2024 9:05 AM EST ?[facility] ?[address] ?[place] [address] ?XRay Report ? Signed ? Patient: Velazquez,No ?MR#: [id number] ?? [id number] ? : 1975 ?Acct:[id number] ? Age/Sex: 48 / F ?ADM Date: 09/15/24 ? Loc: HO.HHCX ? Attending Dr: Elly Villagomez [employer] ? Ordering Physician: Elly Villagomez [employer] ?? Date of Service: 09/15/24 ?? Procedure(s): XR hip RT min 2V ?? Accession Number(s): [id number] ? cc: Elly Villagomez [employer] ? EXAMINATION: ?? XR HIP, RIGHT ? CLINICAL INFORMATION: ?? PAIN ? COMPARISON: ?? MRI hip 09/26/2021. ? TECHNIQUE: ?? Two views of the right hip. ? FINDINGS: ?? No fracture. Alignment is anatomic. Hip joint space is maintained. Soft ?? tissues are unremarkable. ??There is a known lesion with sclerotic ?? thick-walled margins in proximal femur. ? XR/XR hip RT min 2V ?? IMPRESSION: ?? Normal right hip except for known stable lesion right proximal femur ?? compared to MRI 01/16/2017. ? Electronically signed by: ??Oscar Natalie MD ??09/19/2024 09:02 AM EST RP ? Dictated By: ?Natalie,Oscar S MD ? Signed By: ?<Electronically signed by Oscar S Natalie, MD in OV> ?09/19/24 0902 ? DD/DT: 09/15/ 1023 ? TD/TT: 09/15/24 1104 ? Carnival Worker: MSM ? Procedure Note Donotuseinterpreter, Image - 09/19/2024 [facility] [address] [place] [address] XRay Report Signed Patient: No VelazquezMR#: [id number] : 1975Acct:[id number] Age/Sex: 48 / FADM Date: 09/15/24 Loc: HO.HHCX Attending Dr: Elly Villagomez [employer] Ordering Physician: Elly Villagomez [employer] Date of Service: 09/15/24 Procedure(s): XR hip RT min 2V Accession Number(s): [id number] cc: SeymourElly puente [facility] EXAMINATION: XR HIP, RIGHT CLINICAL INFORMATION: PAIN COMPARISON: MRI hip 09/26/2021. TECHNIQUE: Two views of the right hip. FINDINGS: No fracture. Alignment is anatomic. Hip joint space is maintained. Soft tissues are unremarkable. There is a known lesion with sclerotic thick-walled margins in proximal femur. XR/XR hip RT min 2V IMPRESSION: Normal right hip except for known stable lesion right proximal femur compared to MRI 01/16/2017. Electronically signed by: Oscar Estrada MD 09/19/2024 09:02 AM EST Dictated By: Oscar Estrada MD Signed By: <Electronically signed by Oscar Estrada MD in OV> 09/19/24 0902 DD/ 1023 TD/TT: 09/15/24 1104 Carnival Worker: ANNE [facility] [employer] IMG XR PROCEDURES Edited Resu lt - Final * BI Mammogram Screening Bilateral (05/22/2024) Anatomical Region Laterality Modality Breast Bilateral Mammography Ba East MD IMG BI PROCEDURES Final Result * Hm Colonoscopy (03/29/2024) Colonoscopy Normal Normal Historical Provider HEALTH MAINTENANCE Final Result * (ABNORMAL) Lipid Panel, Standard (02/01/2024 8:33 AM EDT) Triglycerides 100 <150 mg/dL [facility] Comment:Desirable Triglyceri de: less than 150 mg/dLBorderline High Triglyceride 150-199 mg/dLHigh Triglyceride: 200-499 mg/dLVery High Triglyceride: greater than or equal to 5OO mg/dL Cholesterol 190 <200 mg/dL [facility] Comment:Desirable Cholestero l: less than 200 mg/dLBorderline High Cholesterol: 200-239 mg/dLHigh Cholesterol: greater than 239 mg/dL LDL Cholesterol Calculated 121(H) <100 mg/dL [facility] Comment:Desirable LDL: less than 100 mg/dLNear Optimal/Above Optimal LDL: 110- 129 mg/dLBorderline High LDL: 130-159 mg/dLHigh LDL: 160-189 mg/dLVery High LDL: greater than or equal to 190 mg/dL HDL Cholesterol 49 >40 mg/dL [facility] Comment:Desirable HDL: great er than 40 mg/dL Note: This HDL assay may give artificially low results in patients with liver disease. Blood Venous blood specimen / Unknown 02/01/2024 8:33 AM EDT 02/01/2024 11:43 AM EDT Ba East MD LAB BLOOD ORDERABL ES Final Result [facility] [address] [place] [phone] * (ABNORMAL) POCT HGB A1C (01/31/2024 9:31 AM EDT) Hemoglobin A1C 6.5(A) 4.0 - 6.0 % QC Media Lot # [id number] Lot# Expiration Date [id number] Blood 01/31/2024 9:31 AM EDT Ba East MD POINT OF CARE TEST ENTER/EDIT ORDERABLES Final Result * Albumin, Random Urine W/Creatinine (09/03/2023 11:20 AM EST) Creatinine, Urine 206.25 mg/dL [facility] Microalbumin Urine 12.0 mg/L [facility] Microalbum Creatinine Ratio Ur 5.8 <30 ug/mg cr [facility] Comment:Albumin/Creatinine R atio Reference Ranges: Normal: < 30 ug/mg creatinine Microalbuminuria: 30 - 300 ug/mg creatinineClinical Albuminuria: > 300 ug/mg creatinine 09/03/2023 11:2 0 AM EST 09/03/2023 6:21 PM EST Ba East MD LAB URINE ORDERABL ES Final Result Performing Organization Address City/[facility]/ZIP Co de Phone Number [facility] [address] [place] [phone] * HEPATITIS C AB W/REFL TO HCV RNA, QN, PCR (11/18/2021 1:03 PM EDT) Pathologist [facility] HEPATITIS C ANTIBODY NON-REACT TY NON-REACT TY [facility] INDEX 0.01 <1.00 [facility] Comment: ?? HCV antibody was non-reactive. There is no laboratory ?? evidence of HCV infection. ?? In most cases, no further action is required. However, if recent HCV exposure is suspected, a test for HCV RNA (test code 40527) is suggested. ?? For additional information please refer to http://education.[employer]/faq/VLX61z1 (This link is being provided for informational/ educational purposes only.) ?? 11/18/2021 1:03 PM EDT us Niru Miranda [employer] HISTORICAL/NON ORDERABLE LABS Final Result [facility] [address] [place] [address], * HIV 1/2 ANTIGEN/ANTIBODY,FOURTH GENERATION W/RFL (11/18/2021 12:09 PM EDT) HIV-1/2 ANTIGEN AND ANTIBODIES, 4TH GENERATION W/ REFLEX TNP [facility] Comment: TEST NOT PERFORMED ?? Duplicate test. 11/18/2021 12:0 9 PM EDT us Niru Miranda [employer] LAB BLOOD ORDERABLES Final Res ult [facility] [address] from Last 3 Months or Most Recently Relevant to Health Maintenance Insurance [facility] C3 Care Teams Greenhouse Laborer Relationship Specialty Start Date End Date Ba Gan MD [address] [place], [place] PCP - General Internal Medicine 04/13/22 Susanne Ernandez Income Tax AdvisorTanning Solution Maker 05/26/24
--- OUTSIDE RECORDS SUMMARY | 2024-12-04 09:28 | XMS_ITS | Encounter Summary ---
Author Organization [employer] Address [address] [facility] [place] [address] Care Team Providers Care Heel Sprayer Name Role Phone Ba Gan MD Primary Care Prov ider Encounter Details Date Type Department Care Team (Late st Contact Info) Description 12/01/2024 Orders Only [facility] [address] [place] [address] Ba Gan MD [address] [place] [address] Type 2 diabetes mellitus without complication, without long-term current use of insulin (CMS/HCC) (Primary Dx) Social History Tobacco Use Types Packs/Day Years Used Date Smoking Tobacco: Never Smokeless Tobacco: Never Alcohol Use Standard Drinks/Week Comments Never 0 [...] Orientation Straight 06/29/2022 10 :30 AM EDT documented as of this encounter Plan of Treatment Scheduled Orders Name Type Priority Associated Diagnoses Orde r Schedule CBC auto differential Lab Routine Type 2 diabetes mellitus without complication, without long-term current use of insulin ([facility]) Expected: 12/01/2024 (Approximate), Expires: 12/01/2025 Comprehensive Metabolic Panel Lab Routine Type 2 diabetes mellitus without complication, without long-term current use of insulin (CMS/HCC) Expected: 12/01/2024 (Approximate), Expires: 12/01/2025 Hemoglobin A1c Lab Routine Type 2 diabetes mellitus without complication, without long-term current use of insulin (CMS/HCC) Expected: 12/01/2024 (Approximate), Expires: 12/01/2025 documented as of this encounter Visit Diagnoses Diagnosis Type 2 diabetes mellitus without complication, without long-term current use of insulin (CMS/[facility])- Primary documented in this encounter Additional Health Concerns Assessment Noted Time PHQ-9 Depression Total Score: 5 01/31/20 24 9:29 AM EDT documented as of this encounter Care Teams Heel Sprayer Relationship Specialty Start Date End Date Ba Gan MD [address] [place] [address] PCP - General Internal Medicine 04/13/22 [facility] Caddie SupervisorStudy Director 05/26/24 documented as of this encounter
--- OUTSIDE RECORDS SUMMARY | 2024-12-04 09:28 | XMS_ITS | Encounter Summary ---
Author Organization [employer] Address [address] [place] [address] [facility] [place] [address] Care Team Providers Care Demonstrator Electric Gas Appliances Name Role Phone Ba Gan MD Primary Care Prov ider Reason for Visit * Reason Onset Date Comments Lab Orders 11/30/2024 Medication Question 11/30/2024 Encounter Details Date Type Department Care Team (Late st Contact Info) Description 11/30/2024 Telephone [facility] MED & PEDS [address] [place] [address] Ba Gan MD [address] [place] [address] Lab Orders; Medication Question Social History Tobacco Use Types Packs/Day Years [...] AM EDT documented as of this encounter Miscellaneous Notes * Telephone Encounter - Tamara Ratliff RN - 12/01/2024 10:51 AM EDT Notified patient that labs were sent and she could come get them done at her convince. Patient stated understanding. * Telephone Encounter - Tamara Ratliff RN - 11/30/2024 2:58 PM EDT Patient is requesting to have her A1C checked. She stated she gets dizzy when standing. RN instructed patient to go from sitting to standing slowly so the blood does not archibald to her head and she become dizzy. RN also encouraged increased hydration. Will route to provider to see if more labs should be ordered. * Telephone Encounter - Mulu Vee - 11/30/2024 11:35 AM EDT Tc from pt requesting to do Labs to recheck her DM. States want to know if she should further discuss starting medication. documented in this encounter Plan of Treatment Not on file documented as of this encounter Visit Diagnoses Not on filedocumented in this encounter Additional Health Concerns Assessment Noted Time PHQ-9 Depression Total Score: 5 01/31/20 24 9:29 AM EDT documented as of this encounter Care Teams Demonstrator Electric [employer] Appliances Relationship Specialty Start Date End Date Ba Gan MD [address] [place] [address] PCP - General Internal Medicine 04/13/22 Susanne Ernandez Business Support SpecialistMachine Setup Operator 05/26/24 documented as of this encounter
--- OUTSIDE RECORDS SUMMARY | 2024-12-04 09:29 | XMS_ITS | Clinical Summary ---
Author Organization [facility] ity Address [address] [place] [address] Care Team Providers Care Spinner Frame Name Role Phone Ba Gan Primary Care Provide r Surgical History Surgery Date Site/Laterality Comments HYSTERECTOMY PROCEDURE: HISTORICAL HYSTERECTOMY SECTION PROCEDURE: ID DELIVERY ONLY HERNIA REPAIR PROCEDURE: HISTORICAL HERNIA REPAIR/ING Medical History Medical History Date Comments Obesity DX:Obesity Mild intermittent asthma DX:Mild intermittent asthma Migraines DX:Migraines; CO MMENT: with aura per pt report Family History Medical History Relation Name Comments Breast cancer Aunt 1 maternal aunt Breast cancer Aunt 2 maternal aunt Breast cancer Mother 50 40s Ovarian cancer Neg Hx Uterine cancer Neg Hx Relation Name Status Comments Aunt 1 maternal aunt Aunt 2 maternal aunt Mother 50 Alive Social History Tobacco Use Types Packs/Day Years Used Date Smoking Tobacco: Never Smokeless Tobacco: Never Alcohol Use Standard Drinks/Week Comments Not Currently 0 (1 standard drink = 0.6 oz pur e alcohol) Comments Unknown Sex and Gender Information Value Date Recorded Sex Assigned at Not on file Legal Sex Female 11:13 PM EST Gender Identity Not on file Sexual Orientation Not on file Obstetrics History Last Filed Vital Signs Vital Sign Reading Time Taken Comments Blood Pressure 117/71 07/09/2023 10:37 AM EST Pulse 86 07/09/2023 10:37 AM EST Temperature - - Respiratory Rate - - Oxygen Saturation - - Inhaled Oxygen Concentration - - Weight 80.3 kg (177 lb) 07/09/2023 10:37 AM EST Height 160 cm (5' 3 ) 08/06/2022 9:17 AM EST Body Mass Index 31.35 08/06/2022 9:17 AM EST Plan of Treatment Upcoming Encounters Date Type Department Care Team (Late st Contact Info) Description 05/31/2025 2:00 PM EDT Appointment Radiology Department [address] [address] Health Maintenance Due Date Last Done Comments DTaP,Tdap,and Td Vaccines (1 - Tdap) 1996 Hepatitis B Vaccines (1 of 3 - 19+ 3-dose series) 1996 Cervical Cancer Screening: Pap Smear 1998 Colorectal Cancer Screening: Colonoscopy 08/09/2022 Depression Screening 08/09/2022 HIV Screening 08/09/2022 Hepatitis C Screening 08/09/2022 Social Influencers of Health Screening 08/09/2022 COVID-19 Vaccine ( season) 2024 Influenza Vaccine (Season Ended) 2025 Breast Cancer Screening 05/22/2026 05/22/20 24, 05/22/2024, 06/07/2023, Additional history exists HIB Vaccines Aged Out No longer eligi ble based on patient's age to complete this topic HPV Vaccines Aged Out No longer eligi ble based on patient's age to complete this topic Hepatitis A Vaccines Aged Out No long er eligible based on patient's age to complete this topic IPV Vaccines Aged Out No longer eligi ble based on patient's age to complete this topic MMR Vaccines Aged Out No longer eligi ble based on patient's age to complete this topic Meningococcal ACWY Vaccine Aged Out N o longer eligible based on patient's age to complete this topic Meningococcal B Vacine Aged Out No lo nger eligible based on patient's age to complete this topic Pneumococcal Vaccine: Pediatrics (0 to 5 Years) and At-Risk Patients (6 to 64 Years) Aged Out No longer eligible based on patient's age to complete this topic RSV Immunization Patients Under 20 months Aged Out No longer eligible based on patient's age to complete this topic Varicella Vaccines Aged Out No longer eligible based on patient's age to complete this topic Procedures Procedure Name Priority Date/Time Associated Diagnosis Comments SCREENING MAMMOGRAPHY BI 2-VIEW BREAST INC CAD Routine 05/22/2024 1:20 PM EDT Encounter for screening mammogram for malignant neoplasm of breast from Last 3 Months or Most Recently Relevant to Health Maintenance Results * SCREENING MAMMOGRAPHY BI 2-VIEW BREAST INC CAD (05/22/2024 1:20 PM EDT) Anatomical Region Laterality Modality Radiographic Rosa ging 05/14/2023 12:5 9 PM EDT Narrative 05/22/2024 7:01 PM EDT This is a summary report. The complete report is available in the patient's medical record. If you cannot access the medical record, please contact the sending organization for a detailed fax or copy. Full field digital screening tomosynthesis mammography, reviewed with CAD and compared to previous. The breasts are composed of fatty and fibroglandular tissue. ??No suspicious mass, architectural distortion or suspicious calcifications are identified. IMPRESSION: : No mammographic evidence of malignancy. BIRADS 1-Negative; N. Breast density: The breasts have scattered areas of fibroglandular density. 5 year breast cancer risk assessment 1.1 % Lifetime breast cancer risk assessment 12.2 % Breast cancer risk category Low (<15%) Location: [facility], [address] [place] [address], [address], [phone] Procedure Note Gabby Cui MD - 07/24/2024 This is a summary report. The complete report is available in thepatient's medical record. If you cannot access the medical record, pleasecontact the sending organization for a detailed fax or copy. Full field digital screening tomosynthesis mammography, reviewed with CADand compared to previous. The breasts are composed of fatty andfibroglandular tissue. No suspicious mass, architectural distortion orsuspicious calcifications are identified. IMPRESSION: : No mammographic evidence of malignancy. BIRADS 1-Negative; N. Breast density: The breasts have scattered areas of fibroglandulardensity. 5 year breast cancer risk assessment 1.1 % Lifetime breast cancer risk assessment 12.2 % Breast cancer risk category Low (<15%) Location: [facility], [address] [place] [address], [address], [phone] Nanda WHITE IMG XR PROCEDURES Final Result from Last 3 Months or Most Recently Relevant to Health Maintenance Care Teams Spinner Frame Relationship Specialty Start Date End Date Ba Gan [address] [place], [place] PCP - General Internal Medicine 01/01/22
--- OUTSIDE RECORDS SUMMARY | 2024-12-04 09:29 | XMS_ITS | Encounter Summary ---
Author Organization [employer] Address [address] [place] [address] [facility] [place] [address] Care Team Providers Care Television Announcer Name Role Phone Ba Gan MD Primary Care Prov ider Encounter Details Date Type Department Care Team (Latest Contact Info) Description 04/21/2019 Abstract [facility] CONVERSIONS Dental, Provider, DDS Social History Tobacco Use Types Packs/Day Years Used Date Smoking Tobacco: Never Assessed Comments Unknown Sex and Gender Information Value Date Recorded Sex Assigned at Female 06/29/2022 10:30 AM EDT Legal Sex Female 10:30 AM EDT Gender Identity Female 06/29/2022 10:30 AM EDT Sexual Orientation Straight 06/29/2022 10 :30 AM EDT documented as of this encounter Plan of Treatment Not on file documented as of this encounter Visit Diagnoses Not on filedocumented in this encounter Care Teams Television Announcer Relationship Specialty Start Date End Date Ba Gan MD [address] [place] [address] PCP - General Internal Medicine 04/13/22 Susanne Ernandez Surgery Scheduling CoordinatorEhs Specialist 05/26/24 documented as of this encounter
--- OUTSIDE RECORDS SUMMARY | 2024-12-04 09:29 | XMS_ITS | Encounter Summary ---
Author Organization [employer] Address [address] [place] [address] Care Team Providers Care Brake Liner Name Role Phone Ba Gan MD Primary Care Prov ider Encounter Details Date Type Department Care Team (Late st Contact Info) Description 07/20/2022 Orders Only [facility] MED & PEDS [address] [place] [address] Janna Hamilton, RN [address] [place] [address] Social History Tobacco Use Types Packs/Day Years [...] on filedocumented in this encounter Care Teams Brake Liner Relationship Specialty Start Date End Date Ba Gan MD [address] [place] [address] PCP - General Internal Medicine 04/13/22 Susanne Ernandez Barrel Rifler OperatorBeef Splitter 05/26/24 documented as of this encounter
--- OUTSIDE RECORDS SUMMARY | 2024-12-04 09:29 | XMS_ITS | Encounter Summary ---
Author Organization [employer] Address [address] [facility] [address] 7[address] [place] [address] Care Team Providers Care Filer Metal Patterns Name Role Phone Ba Gan MD Primary Care Prov ider Encounter Details Date Type Department Care Team (Late st Contact Info) Description 09/15/2024 Orders Only [facility] [address] [place] [address] [facility] [address] [place] [address] Benign neoplasm of bone, unspecified bone Social History Tobacco Use Types Packs/Day Years [...] your housing situation today? I have dolores imani 01/21/[address] you li [...] on file documented as of this encounter Procedures Procedure Name Priority Date/Time Associated Diagnosis Comments XR PELVIS 1-2 VIEWS Routine 09/15/2024 1 1:00 AM EST Benign neoplasm of bone, unspecified bone documented in this encounter Results * XR Pelvis 1-2 Views (09/15/2024 11:00 AM EST) Anatomical Region Laterality Modality Body, Pelvis Radiographic Rosa ging 09/15/2024 11:0 0 AM EST Narrative 09/19/2024 9:01 AM EST ?[facility] ?[address] ?[place] [address] ?XRay Report ? Signed ? Patient: Velazquez,No ?MR#: [id number] ?? [id number] ? : 1975 ?Acct:[id number] ? Age/Sex: 48 / F ?ADM Date: 01/17/25 ? Loc: HO.HHCX ? Attending Dr: Elly [place] SUPERVISOR EPOXY FABRICATION ? Ordering Physician: Elly Villagomez SUPERVISOR EPOXY FABRICATION ?? Date of Service: 09/15/24 ?? Procedure(s): XR pelvis 1-2V ?? Accession Number(s): [id number] ? cc: Elly Villagomez SUPERVISOR EPOXY FABRICATION ? EXAMINATION: ?? XR PELVIS ? CLINICAL [...] DD/ 1100 ? TD/TT: 09/15/24 1104 ? Information Systems Security Manager: MSM ? Procedure Note Candy, Josh - 09/19/[address] [address] XRay Report Signed Patient: No VelazquezMR#: [id number] : 1975Acct:[id number] Age/Sex: 48 / FADM Date: 09/15/24 Loc: HO.HHCX Attending Dr: Elly Villagomez SUPERVISOR EPOXY FABRICATION Ordering Physician: Elly Villagomez Date of Service: 09/15/24 Procedure(s): XR pelvis 1-2V Accession Number(s): [id number] cc: Elly Villagomez EXAMINATION: XR PELVIS CLINICAL INFORMATION: BENIGN NEOPLASM [...] 09/19/24 0858 DD/ 1100 TD/TT: 09/15/24 1104 Information Systems Security Manager: [facility] SUPERVISOR EPOXY FABRICATION IMG XR PROCEDURES Edited Resu lt - Final documented in this encounter Visit Diagnoses Diagnosis Benign neoplasm of bone, unspecified bone documented in this encounter Additional Health Concerns Assessment Noted Time PHQ-9 Depression Total Score: 5 01/31/20 24 9:29 AM EDT documented as of this encounter Care Teams Filer Metal Patterns Relationship Specialty Start Date End Date Ba Gan MD [address] [place] [address] PCP - General Internal Medicine 04/13/22 Susanne Ernandez Entry Level Mechanical EngineerCommercial Illustrator 05/26/24 documented as of this encounter
--- OUTSIDE RECORDS SUMMARY | 2024-12-04 09:29 | XMS_ITS | Referral Summary ---
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 05/19/2021 Active cetirizine (ZyrTEC) 10 mg tablet Take 10 mg by mouth once a day. 01/14/2021 Active cholecalciferol (VITAMIN D3) 1,000 unit tablet TAKE ONE TABLET BY MOUTH EVERY DAY. 01/14/2021 Active ProAir HFA 90 mcg/actuation inhaler INHALE TWO PUFFS EVERY 4 TO 6 HOURS NEEDED. 02/24/2021 Active baclofen (LIORESAL) 10 mg tablet Take 10 mg by mouth 2 times a day as needed. 03/24/2021 Active sulfamethoxazol e-trimethoprim (BACTRIM DS) 800-160 mg tablet Take 1 tablet by mouth 2 times a day. 10/07/2021 Active Necon 0.5/35, 28, 0.5-35 mg-mcg per tablet Take 1 tablet by mouth once a day. 01/05/2022 Active famotidine (PEPCID) 40 mg tablet Take 40 mg by mouth nightly. 11/07/2021 Active pyridoxine (VITAMIN B6) 50 mg tablet TAKE 2 TABLETS (100MG) BY MOUTH ONCE DAILY 05/28/2021 Active diclofenac (CATAFLAM) 50 mg tablet Take 50 mg by mouth 2 times a day. 12/12/2021 Active ergocalciferol (VITAMIN D2) 1,250 mcg (50,000 unit) capsule Take 1 capsule by mouth per week. Active Active Problems Problem Noted Date Diagnosed Date Carpal tunnel syndrome 11/06/2024 Chronic back pain 11/06/2024 Neck pain 11/06/2024 Numbness of hand 11/06/2024 Skin tag 12/10/2023 Bilateral hand pain 08/14/2023 [place] 07/09/2023 Overview (11/06/2024): Last Assessment & Plan: I explained that pain with ovulation is not uncommon or abnormal. She had a normal US in 2021 and thus does not need to be repeated as sx unchanged. She was offered hormonal suppression vs continued management with prn ibuprofen. She prefers ibuprofen. Rx filled. Abnormal mammogram 06/09/2023 Overview (11/06/2024): 05/19/2023-Conclusions: Complex cystic lesion in the left breast at 6:00. It could represent a focus of apocrine metaplasia or other abnormality. Ultrasound-guided core biopsy with a clip placement is recommended. 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 Decrease caffeine and carbonated beverages. Try to train the bladder by only going to the bathroom every 2 hours. Increase by a small amount of time daily to get to that goal. In the meantime, when you have the urge FREEZE AND SQUEEZE. Urine studies today to see if there is an infection. Will follow up at next visit. Can refer to Urogyn if not improving. CARRILLO (nonalcoholic steatohepatitis) 01/21/2023 Type 2 diabetes mellitus wit hout complication, without long-term current use of insulin 01/21/2023 Mild intermittent asthma without complication Seasonal allergies 12/07/2022 Vitamin D deficiency 12/07/2022 Lichen sclerosus 05/28/2022 Overview (11/06/2024): Last Assessment & Plan: Reviewed findings with [...] Gastroesophageal reflux disease without esophagi tis 01/11/2019 History of hysterectomy for benign disease 01/11 Social History Tobacco Use Types Packs/Day Years Used Date Smoking Tobacco: Never Smokeless Tobacco: Never Alcohol Use Standard Drinks/Week Comments Never 0 (1 standard drink = 0.6 oz pur e alcohol) Comments Unknown Sex and Gender Information Value Date Recorded Sex Assigned at Female 11/02/2024 1:33 PM EST Legal Sex Female 7:18 PM EDT Gender Identity Female 11/02/2024 1:33 PM EST Sexual Orientation Bisexual 11/02/2024 1: 33 PM EST Occupation Industry Job Start Date Job End Date N/A Not on file Not on file Not on file Last Filed Vital Signs Vital Sign Reading Time Taken Comments Blood Pressure 112/77 10/17/2021 10:13 AM EST Pulse 80 10/17/2021 10:13 AM EST Temperature - - Respiratory Rate - - Oxygen Saturation - - Inhaled Oxygen Concentration - - Weight 79.4 kg (175 lb) 10/17/2021 10:13 AM EST Height 160 cm (5' 3 ) 10/17/2021 10:13 AM EST Body Mass Index 31 10/17/2021 10:13 AM EST Plan of Treatment Not on file Insurance [facility] Care Teams Senior Corporate Recruiter Relationship Specialty Start Date End Date Megan Rosenbaum [address] [place] [phone] PCP - General 03/18/17
--- OUTSIDE RECORDS SUMMARY | 2024-12-04 09:29 | XMS_ITS | Clinical Summary ---
Author Organization [facility] Address [address] [place] [address] Care Team Providers Care Employee Adviser Name Role Phone Megan Rosenbaum Primary Care Provider [phone] Allergies Active Allergy Reactions Criticality Noted Date [...] Team Description 11/06/2024 3:00 PM EDT Follow-Up 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; Chronic heel pain, right 09/15/2024 Orders Only [facility] - External Imaging [address] [place] [id number] Radiology, External 09/15/2024 Orders Only [facility] - External Imaging [address] [place] [id number] Radiology, External from Last 3 Months Family History Medical History Relation Name Comments Peripheral vascular disease Father Breast cancer Mother Diabetes Mother Hypertension Mother Breast cancer Mother's Sister No Known Problems Other No Known Problems Sister Relation Name Status Comments Father Alive Mother Alive Mother's Sister Other Alive Sister Alive Social History Tobacco Use Types Packs/Day [...] 10/17/2021 10:13 AM EST Plan of Treatment Health Maintenance Due Date Last Done Comments Basic Metabolic Panel 1975 Cologuard 1975 Colon Cancer Screening 1975 Colonoscopy 1975 FOBT / Fit Test 1975 Hepatitis C Screening 1975 Sigmoidoscopy 1975 Ophthalmology Exam 12/20/1987 Urine Microalbumin 12/20/1987 Pneumococcal Vaccine: Pediat aubrey (0-5 Years) and At-Risk Patients (6-50 Years) (1 of 2 - PCV) 1996 DTaP,Tdap,and Td Vaccines (2 - Td or Tdap) 07/14/2022 07/14/2012 COVID-19 Vaccine (3 - 2023-2 5 season) 2024 12/21/2020, 11/23/2020 Hemoglobin A1C 08/01/2024 01/31/2024 Alcohol/Substance Use Screening 08/30/2024 Depression Screening and Follow-Up 08/30/2024 Social Drivers of Health Jaclyn ual Screening 08/30/2024 Mammogram 05/22/2026 05/22/2024, 05/01, 05/22/2024, Additional history exists RSV Vaccine (60+ years old a nd patients) (1 - 1-dose 75+ series) 2052 Hepatitis B Vaccines Completed 01/11/2019, 08/03/2018, 02/24/2018 HIV Screening Completed 11/18/2021, 10/29, 11/18/2021 Influenza Vaccine Completed 05/24/2024, , 06/26/2020, Additional history exists Insurance [facility] Care Teams Employee Adviser Relationship Specialty Start Date End Date RobiMegan dillard [address] [place] [address] [place] [address] PCP - General 03/18/17
[2024-12-04 14:01] LABS: MANUAL DIFF FLAG NO
[2024-12-04 14:07] LABS: Basophils Absolute Auto 0.1 X10*3/uL (0.0-0.2); Eosinophils Absolute Auto 0.3 X10*3/uL (0.0-0.4); Eosinophils Percent Auto 5.5 % (0-4); Hematocrit 41.8 % (37.0-47.0); Hemoglobin 13.5 g/dl (12.0-16.0); Imm Gran Abs Auto 0.02 X10*3/uL (0.00-0.03); Imm Gran Pct Auto 0.3 % (0.0-0.4); Lymphocytes Absolute Auto 2.3 X10*3/uL (1.2-4.9); Lymphocytes Percent Auto 37.1 % (20-40); Mean Corpuscular HGB Conc 32.3 g/dl (31.0-35.0); Mean Corpuscular Volume 89.9 fL (80.0-98.0); Mean Platelet Volume 10.9 fL (9.4-12.3); Monocytes Absolute Auto 0.5 X10*3/uL (0.1-1.2); Monocytes Percent Auto 8.1 % (2-11); Platelet Count 253 X10*3/uL (160-400); Red Blood Count 4.65 X10*6/uL (4.20-5.50); Red Cell Distribution Width 11.8 % (11.0-16.0); White Blood Count 6.2 X10*3/uL (4.8-10.8)
[2024-12-04 14:20] LABS: Estimated Average Glucose 146 mg/dL; Hemoglobin A1C 179.1341 umol/L; Hemoglobin A1c % 6.7 % (<6.0); Total Hemoglobin (HGBA1C) 3586.8744 umol/L
[2024-12-04 14:42] LABS: Alanine Aminotransferase 38 U/L (0-31); Albumin Level 4.3 g/dL (3.5-5.0); Alkaline Phosphatase 55 U/L (39-117); Anion Gap 12 (12-20); Aspartate Amino Transferase 34 U/L (5-31); Bilirubin Total 0.4 mg/dL (0.0-1.0); Blood Urea Nitrogen 9 mg/dL (9-16); Carbon Dioxide 23 mmol/L (22-29); Chloride 108 mmol/L (96-108); Estimated Glomerular Filt Rate > 60; Glucose Random 121 mg/dL (60-115); Potassium 3.6 mmol/L (3.3-5.1); Sodium 139 mmol/L (135-145); Total Protein 7.1 g/dL (6.5-8.0)
== END 2024-12-04 08:46 | disposition home or self-care (01) ==
LOC: HO.CHCLDS 08:45
PROVIDERS: Visit Provider Internal Medicine
DX: E11.9 Type 2 diabetes mellitus without complications (principal)
CPT/HCPCS: 36415; 80053; 83036; 85025

== ENCOUNTER 2025-06-25 12:22 | Outpatient (REF) | payer MEDICAID, SELFPAY ==
--- NOTE | ~2025-06-25 | XR_ITS ---
EXAMINATION: XR FOOT, RIGHT CLINICAL INFORMATION: right foot pain COMPARISON: April 09, 2021 TECHNIQUE: AP, lateral, and oblique views of the right foot. FINDINGS: No acute cortical disruption or malalignment. No lytic or blastic lesions. No osteolysis. No subcutaneous emphysema. No metallic or radiopaque foreign body. Lateral view excludes the distal tibia-fibula. XR/XR foot RT min 3V IMPRESSION: No acute fracture or dislocation. Negative x-ray. Electronically signed by: Jeremy Johnson MD 06/25/2025 12:48 PM EDT
--- OUTSIDE RECORDS SUMMARY | 2025-06-25 15:44 | XMS_ITS | Clinical Summary ---
Author Organization [facility] [address] [place] [address] [place] [address] Phone Care Team Providers Care Heating Equipment Installer Name Role Phone Ba Gan Primary Care Provide r Encounters Date Type Department Care Team Description 05/31/2025 1:49 PM EDT - 05/31/2025 11:59 PM EDT Hospital Encounter Radiology Department [address] [phone] Encounter for screening mammogram for breast cancer Discharge Disposition: Home or Self Care from Last 3 Months Surgical History Surgery Date Site/Laterality Comments HYSTERECTOMY PROCEDURE: HISTORICAL HYSTERECTOMY SECTION PROCEDURE: UT DELIVERY ONLY HERNIA REPAIR PROCEDURE: HISTORICAL HERNIA REPAIR/ING STEREOTACTIC CORE BIOPSY Medical History Medical History Date Comments Obesity [...] = 0.6 oz pur e alcohol) Comments No Sex and Gender Information Value Date Recorded Sex Assigned at Not on file Legal Sex Female 11:13 PM EST Gender Identity Not on file Sexual Orientation Not on file Obstetrics History Para Term AB IAB SAB Ectopic Multiple Livin g Live Births 4 4 4 4 Date Outcome GA Total Labor Labor/2nd/3rd Weight Sex Type Anes PTL Nadya A1 A5 Name Clin Term Term Term Term Last Filed Vital Signs Vital Sign Reading [...] Care Team (Late st Contact Info) Description 08/13/2025 1:15 PM EST Consult Orthopedic Surgery - [place] [address] [place] [phone] Jeff Lorenzo, [address] [phone] Health Maintenance Due Date Last Done Comments Colorectal Cancer Screening: Colonoscopy 1977 Diabetes: Annual GFR (Glomerular Filtration Rate) 1977 Diabetes: Annual Foot Exam 12/20/1987 Hepatitis A Vaccines (1 of 2 - Risk 2-dose series) 1996 Pneumococcal Vaccine: Pediatrics (0 to 5 Years) and At-Risk Patients (6 to 49 Years) (1 of 2 - PCV) 1996 Cervical Cancer Screening: Pap Smear 1998 DTaP,Tdap,and Td Vaccines (2 - Td or Tdap) 07/14/2022 07/14/2012 Hepatitis C Screening 08/09/2022 Social Influencers of Health Screening 08/09/2022 Depression Screening 08/30/2024 COVID-19 Vaccine ( season) 2025 12/21/2020, 11/23/2020 Influenza Vaccine (#1) 2025 4, 08/01/2021, 06/26/2020, Additional history exists Diabetes: Annual Urine Albumin-Creatinine Ratio (uACR) 05/31/2025 Diabetes: Blood Sugar Control Test (HGBA1C) 06/05/2025 12/04/2024 Diabetes: Annual Retina Eye Exam 04/17/2026 04/17/2025 Breast Cancer Screening 05/31/2027 05/31/20 25, 05/22/2024, 05/22/2024, Additional history exists Cholesterol Screening (Lipid Panel) 01/31/2029 02/01/2024 RSV Immunization Adult Patients (1 - 1-dose 75+ series) 2052 Hepatitis B Vaccines Completed 01/11/2019, 08/03/2018, 02/24/2018 HIV Screening Completed 11/18/2021 HIB Vaccines Aged Out No longer eligi [...] age to complete this topic Meningococcal B Vaccine Aged Out No l onger eligible based on patient's age to complete this topic RSV Immunization Patients Under 20 months Aged Out No longer eligible based on patient's age to complete this topic Varicella Vaccines Aged Out No longer eligible based on patient's age to complete this topic Procedures Procedure Name Priority Date/Time Associated Diagnosis Comments MG MAMMO DIGITAL SCREENING W RICHY BILAT Routine 05/31/2025 1:57 PM EDT Encounter for screening mammogram for breast cancer from Last 3 Months Results * MG Mammo Digital Screening w Richy bilat (05/31/2025 1:57 PM EDT) Anatomical Region Laterality Modality Breast Bilateral Mammography 06/04/2025 9:27 AM EDT Impressions 06/04/2025 9:43 AM EDT No mammographic evidence for malignancy. BI-RADS CATEGORY: 2 - BENIGN RECOMMENDATION: Screening bilateral mammogram is recommended in 1 year. Mammo Location: [facility], [address] [place] [address], [id number], . -------- FINAL REPORT -------- Dictated By: Gabby Cui Dictated Date: 06/04/2025 09:27 ET Assigned Physician: Gabby Cui Reviewed and Electronically Signed By: Gabby Cui Signed Date: 06/04/2025 09:43 ET Workstation ID: [id number] Transcribed By: Self Edit Transcribed Date: 06/04/2025 09:27 ET Narrative 06/04/2025 9:43 AM EDT Bilateral screening mammogram. CLINICAL: 49 years old, Female, routine annual exam. COMPARISON: Prior mammograms, latest from 05/22/2024 TECHNIQUE: Bilateral MLO and CC views were obtained digitally with 2 D C views and 3-D mammogram (digital breast tomosynthesis). Computer-aided detection was utilized in evaluation of this exam (CAD). FINDINGS: There is stable benign nodularity in in the posterior upper breasts bilaterally. There is no evidence of suspicious mass or architectural distortion. No worrisome calcifications are evident. There has been no significant change from prior exam(s). BREAST DENSITY: B - There are scattered areas of fibroglandular density. Procedure Note Gabby Cui MD - 06/04/2025 Bilateral screening mammogram. CLINICAL: 49 years old, Female, routine annual exam. COMPARISON: Prior mammograms, latest from 05/22/2024 TECHNIQUE: Bilateral MLO and CC views were obtained digitally with 2 D Cviews and 3-D mammogram (digital breast tomosynthesis). Computer-aideddetection was utilized in evaluation of this exam (CAD). FINDINGS: There is stable benign nodularity in in the posterior upper breastsbilaterally. There is no evidence of suspicious mass or architecturaldistortion. No worrisome calcifications are evident. There has been nosignificant change from prior exam(s). BREAST DENSITY: B - There are scattered areas of fibroglandular density. IMPRESSION: No mammographic evidence for malignancy. BI-RADS CATEGORY: 2 - BENIGN RECOMMENDATION: Screening bilateral mammogram is recommended in 1 year. Mammo Location: [facility], [address] [place] [address], [id number], . -------- FINAL REPORT -------- Dictated By: Gabby Cui Dictated Date: 06/04/2025 09:27 ET Assigned Physician: Gabby Cui Reviewed and Electronically Signed By: Gabby Cui Signed Date: 06/04/2025 09:43 ET Workstation ID: [id number] Transcribed By: Self Edit Transcribed Date: 06/04/2025 09:27 ET Ba [place] IMG BI PROCEDURES Fin al Result from Last 3 Months Insurance Care Teams Heating Equipment Installer Relationship Specialty Start Date End Date Ba Gan [address] [place], [place] PCP - General Internal Medicine 01/01/22
--- OUTSIDE RECORDS SUMMARY | 2025-06-25 15:44 | XMS_ITS | Clinical Summary ---
Author Organization [facility] Address [address] [place] [address] Care Team Providers Care Auto Mechanics Teacher Name Role Phone Megan Rosenbaum Primary Care Provider [phone] Allergies Active Allergy Reactions Criticality Noted Date [...] History of hysterectomy for benign disease 01/11 Family History Medical History Relation Name Comments [...] (2 - Td or Tdap) 07/14/2022 07/14/2012 Hemoglobin A1C 08/01/2024 01/31/2024 Alcohol/Substance Use Screening 08/30/2024 Depression Screening and Follow-Up 08/30/2024 Social Drivers of Health Jaclyn ual Screening 08/30/2024 COVID-19 Vaccine (3 - 2024-2 6 season) 2025 12/21/2020, 11/23/2020 Influenza Vaccine (#1) 2025 , 08/01/2021, 06/26/2020, Additional history exists Mammogram 05/22/2026 05/22/2024, 05/01, 05/22/2024, Additional history exists RSV Vaccine (60+ years old a nd patients) (1 - 1-dose 75+ series) 2052 Hepatitis B Vaccines Completed 01/11/2019, 08/03/2018, 02/24/2018 HIV Screening Completed 11/18/2021, 10/29, 11/18/2021 Insurance [employer] Care Teams Auto Mechanics Teacher Relationship Specialty Start Date End Date Megan Rosenbaum [address] [place] [id number] PCP - General 03/18/17
== END 2025-06-25 12:23 | disposition home or self-care (01) ==
LOC: HO.XRAY 12:22
PROVIDERS: PCP Internal Medicine; Visit Provider Internal Medicine
DX: M79.671 Pain in right foot (principal)
CPT/HCPCS: 73630

== ENCOUNTER → 2025-06-25 12:26 | Outpatient (BNV) | payer MEDICAID, SELFPAY | PROVIDERS: PCP Internal Medicine; Visit Provider Radiology Diagnostic Radiology | DX: M79.671 Pain in right foot (principal) | CPT/HCPCS: 73630 ==

== ENCOUNTER 2025-07-16 11:18 | Outpatient (REF) | payer MEDICAID, SELFPAY ==
[2025-07-16 13:20] LABS: MANUAL DIFF FLAG NO
[2025-07-16 13:42] LABS: Hematocrit 46.7 % (37.0-47.0); Hemoglobin 14.4 g/dl (12.0-16.0); Imm Gran Abs Auto 0.02 X10*3/uL (0.00-0.03); Imm Gran Pct Auto 0.3 % (0.0-0.4); Lymphocytes Absolute Auto 2.4 X10*3/uL (1.2-4.9); Mean Corpuscular HGB Conc 30.8 g/dl (31.0-35.0); Mean Corpuscular Hemoglobin 28.9 pg (27.0-33.0); Mean Corpuscular Volume 93.8 fL (80.0-98.0); NRBC Abs Auto 0.000 X10*3/uL (0.0-0.012); NRBC Pct Auto 0.0 /100WBC (0.0-0.2); Platelet Count 264 X10*3/uL (160-400); Red Blood Count 4.98 X10*6/uL (4.20-5.50); White Blood Count 6.5 X10*3/uL (4.8-10.8)
[2025-07-16 14:13] LABS: Uric Acid 4.2 mg/dL (2.4-5.7)
[2025-07-17 08:28] LABS: HBS Num1 14.52 mIU/mL (0-7.99); HBc Num1 0.08 S/CO (0.00-0.79); HBsAGNum1 0.51 S/CO (0.00-0.99); Hepatitis A Antibody IgM 0.25 Index (0-0.79); Hepatitis B Surface Antigen Negative (Negative); ~HepC Num1 0.10 S/CO (0.00-0.79); ~Hepatitis A Antibody IgM Nonreactive (Nonreactive); ~Hepatitis B Surface Antibody REACTIVE (Nonreactive); ~Hepatitis C Antibody Nonreactive (Nonreactive)
[2025-07-18 14:34] LABS: Anti Nuclear Antibody Screen POSITIVE (NEGATIVE); Anti Nuclear Antibody Titer 1:80 titer
== END 2025-07-16 11:19 | disposition home or self-care (01) ==
LOC: HO.HHCL 11:18
PROVIDERS: PCP Internal Medicine; Visit Provider Internal Medicine
DX: Z11.59 Encounter for screening for other viral diseases (principal); Z01.84 Encounter for antibody response examination; M25.471 Effusion, right ankle; M25.472 Effusion, left ankle; M25.571 Pain in right ankle and joints of right foot
CPT/HCPCS: 36415; 84550; 85025; 85652; 86038; 86039; 86140; 86431; 86704; 86706; 86709; 86803; 87340